=== PATIENT | female | born 1960 | race Caucasian/White ===

== ENCOUNTER 2017-05-15 14:43 | Inpatient (IN) ==
--- NOTE | 2017-05-15 15:50 | EKG Report ---
Stationary ECG Study [facility] ER Test Date: 05/15/2017 2:56:45 PM Pat Name: FENG ALFORD Department: Room: Gender: F Recovery Agent: : 1960 Requested by: Amaury Inman Order Number: [id number] Reading MD: IGNACIO MUNIZ Intervals [place] Rate: 93 P: 999 MD: 0 QRS: 49 QRSD: 86 T: 79 QT: 384 QTc: 435 Interpretive Statements ATRIAL FIBRILLATION NONSPECIFIC T-WAVE ABNORMALITY Electronically Signed On 05-15-17 18:22:45 CDT by IGNACIO MUNIZ [email or web address]
--- NOTE | 2017-05-15 16:03 | Emergency Department Note ---
Arrival - Arrival Chief Complaint: Shortness of Breath Stated Complaint: SOB,high heart rate,afib ED Nursing Triage Note: sob on exertion for the past 7 days. has a hx of heart cath 3 weeks ago. reports that she has a pain that comes and goes in left flank area that radiates around to her side. reports has also had some jaw pain and left arm pain. Mode of Arrival: Ambulatory Limitations: No Limitations Source: Patient Time Seen by Provider: 05/15/17 15:58 - History of Present Illness HPI Narrative: This 56-year-old white female presents with one-week of orthopnea, PND, dyspnea on exertion, and elevated heart rate when moving about. In relationship to this she has likewise had some jaw pain, left arm pain, and left sided back pain all of which follows 3 weeks after a heart cath. Her heart cath was performed by Dr. Suarez for Dr. Lockett and she states no stents were placed and all she was told that she had 40% blockage without mention if she had congestive heart failure not. She denies chills, fever, cough, nausea, vomiting , or diaphoresis with these episodes. At rest in bed she currently appears in no acute distress. Onset (ago): week(s) (Patient presents 1 week post onset of symptoms) Date of Last Menstrual Period: hyst Allergies/Adverse Reactions: Allergies Allergy/AdvReac Type Severity Reaction Status Date / Time Iodinated Contrast Media - Allergy SHORTNESS Verified 04/22/17 07:33 Oral and OF BREATH [Iodinated Contrast Media - IV Dye] morphine Allergy HIVES Verified 04/22/17 07:33 iodine AdvReac SHORTNESS Verified 04/22/17 07:33 OF BREATH metoclopramide [From Reglan] AdvReac Cramping Verified 04/22/17 07:33 of the Muscles promethazine [From Phenergan] AdvReac ITCHING Verified 04/22/17 07:33 Home Medications: Home Medications Medication Instructions Recorded Confirmed Type HYDROcodone/ACETAMIN 10-325 [[place] 1 tablet PO Q6H PRN 03/11/16 05/15/17 History 10-325] Rosuvastatin [Crestor] 20 mg PO BEDTIME 03/11/16 05/15/17 History Pantoprazole Tab [Protonix Tab] 40 mg PO BID 04/26/16 05/15/17 History Gabapentin 300 mg PO BEDTIME 06/23/16 05/15/17 History amLODIPine [Norvasc] 5 mg PO QAM 06/23/16 05/15/17 History Aspirin EC Tab 81 mg PO QAM 04/21/17 05/15/17 History Dronedarone [Multaq] 400 mg PO BID W/MEALS 04/21/17 05/15/17 History Furosemide Tab [Lasix Tab] 20 mg PO QAM 04/21/17 05/15/17 History Metoprolol Succinate Xl [Toprol Xl] 50 mg PO QAM 04/21/17 05/15/17 History Ondansetron Odt Tab [Zofran Odt] 4 mg PO BID PRN 04/21/17 05/15/17 History Warfarin [Coumadin] 2 mg PO QAM 04/21/17 05/15/17 History Warfarin [Coumadin] 5 mg PO QAM 04/21/17 05/15/17 History Sertraline [Zoloft] 100 mg PO BEDTIME 05/15/17 05/15/17 History Review of System - Review of System 12 point system: reviewed and no additional remarkable complaints except as stated - Review of System Constitutional: Present: as per HPI Respiratory: Present: as per HPI Cardiovascular: Present: as per HPI Gastrointestinal: Present: as per HPI Medical,Surgical,& Family Hx - Medical History Cardio: History of: Cardiac Dysrhythmia (A-Fib), Hypertension Psychological: History of: Depression Neurology: No history of: Seizures Endocrine: History of: Dyslipidemia Respiratory: History of: Obstructive Sleep Apnea Gastrointestinal: History of: GERD Musculoskeletal: History of: Back/Neck Problems, Degenerative Disk Disease, Herniated Disk - Surgical History Cardiac Surgeries: Sugical HX of: Cardiac Catheterization HEENT Surgeries: Surgical HX of: Tonsilectomy & Adenoidectomy Abdominal Surgeries: Surgical HX of: Cholecystectomy Reproductive Surgeries: Surgical HX of;: Section, Hysterectomy Orthopedic Surgeries: Surgical HX of;: Orthopedic Surgery (shoulder surg) - Family History Family History: Reports;: Family Cancer, Family Diabetes, Family Heart Disease, Family Hypertension - Social History Smoking Status: Former smoker Exam Physical Examination: GENERAL: Obese white female in no acute distress. HEENT: Normocephalic. No trauma. Moist mucous membranes. EOMI. PERRLA. ENT NML NECK: Supple. No adenopathy. CARDIAC: Regular. No murmurs. Heart rate 100 CHEST: Clear to auscultation. No respiratory distress. O2 sat 96% ABDOMEN: Soft. Nontender. Active bowel sounds. EXTREMITIES: No trauma. Normal ROM. No pedal edema. SKIN: No diaphoresis. No rash. NEURO: Alert. Neuro intact no focal deficits. Vital Signs: Vital Signs Temperature 97.1 F L 05/15/17 14:52 Pulse Rate 92 H 05/15/17 18:15 Respiratory Rate 17 05/15/17 18:15 Blood Pressure 121/86 05/15/17 18:15 O2 Sat by Pulse Oximetry 99 05/15/17 18:15 Course - Reevaluation(s) Reevaluation #1: Discussed with patient and family the need for hospitalization for cardioversion in the morning. - Consultations Consultation #1: Discussed with Dr. Lockett who advised admission for cardioversion in the morning and treatment of failure in house. Results - Labs CBC & BMP: 05/15/17 17:20 05/15/17 17:20 Labs: I reviewed the laboratory noted the depressed hematocrit and elevated BNP - Impressions EKG: Atrial fibrillation at 93 with normal QRS duration and nonspecific ST changes. No acute injury pattern noted. - Diagnostic Findings Procedure: Chest x-ray: image reviewed by me, report reviewed by me (Stable mild cardiomegaly otherwise negative chest) Disposition Clinical Impression: Atrial fibrillation, Congestive heart failure Case discussed with: patient, patient's family Disposition: Still a Patient Condition: Guarded Time of Disposition: 19:00
--- NOTE | 2017-05-15 16:42 | XRay Report ---
2 view chest. Indication: Shortness of breath. Comparison: April 22, 2017. The heart is enlarged. A small electrode projects over the left aspect of the heart. The pulmonary vasculature is normal. The lung guzman are clear. Surgical clips in the right upper quadrant. Degenerative changes in the spinal column. Impression: Mild stable cardiomegaly. No acute abnormality. PROCEDURE INTERPRETED AT [facility] DEPARTMENT OF RADIOLOGY Final Report Signed by: Dr. Rhonda Arzate
[2017-05-15 17:42] LABS: Basophils # 0.1 10*3/uL (0.0-0.2); Basophils % 0.8 % (0.0-0.8); Eosinophils # 0.1 10*3/uL (0.0-0.87); Eosinophils % 2.3 % (0.00-10.9); Hematocrit 34.2 VOL% (35.7-47.0); Hemoglobin 11.2 GM/DL (12.0-16.0); Immature Granulocytes % 0.2 %; Immature Granulocytes Absolute 0.01 #; Lymphocytes # 2.5 10*3/uL (1.4-4.0); Lymphocytes % 39.5 % (21.3-54.2); Mean Corpuscular HGB Conc 32.7 GM/DL (32-36); Mean Corpuscular Hemoglobin 27 PG (27-34); Mean Corpuscular Volume 81.6 FL (87-102); Mean Platelet Volume 9.4 FL (9.6-12.0); Monocytes # 0.6 10*3/uL (0.11-0.8); Monocytes % 8.9 % (1.7-12.7); Neutrophils % 48.3 % (38.7-73.9); Platelet Count 298 T/CUMM (130-400); Red Blood Count 4.19 MC/CUMM (3.8-5.5); Red Cell Distribution Width 14.3 % (9.3-17.3); White Blood Count 6.2 T/CUMM (4-12)
[2017-05-15 17:53] LABS: PT Patient Result 22.1 SECS; Partial Thromboplastin Time 36.3 SECS (0-40)
[2017-05-15 18:15] LABS: Alanine Aminotransferase 23 U/L (13-56); Albumin 3.6 G/DL (3.4-5.0); Alkaline Phosphatase 96 U/L (45-117); Aspartate Amino Transferase 29 U/L (0-37); Blood Urea Nitrogen 15 MG/DL (7-18); Calcium 9.1 MG/DL (8.5-10.1); Glucose 85 MG/DL (74-106); Osmolality,Calculated 276.5 MOS/KG (273-304); Potassium 3.8 MMOL/L (3.5-5.1); Sodium 139 MMOL/L (136-145); Total Protein 7.6 G/DL (6.4-8.3); Troponin I Only < 0.015 NG/ML (0.00-0.045)
[2017-05-15 18:37] LABS: Apearance,Urine CLEAR (Clear); Bacteria,Urine Occasional /HPF (Few); Bilirubin,Urine Negative (Negative); Blood, Urine Negative (Negative); Glucose,Urine (UA) Negative (Negative); Ketones,Urine Negative (Negative); Nitrite,Urine Negative (Negative); Protein,Urine Negative; RBC,Urine <1 /HPF (0-4); Squamous Epithelial Cell,Urine Occasional /HPF (0-10); Urine Color Yellow (Yellow); Urine Specific Gravity 1.009 (1.001-1.035); Urine Urobilinogen < 2.0 EU/DL (0.2-1.0); WBC,Urine 1 /HPF (0-6)
[2017-05-15 18:44] LABS: Barbiturates Screen,Urine Negative (Negative); Benzodiazepines Screen,Urine Negative (Negative); Cannabinoid Screen,Urine Negative (Negative); Opiate Screen,Urine Positive (Negative); Phencyclidine Screen,Urine Negative (Negative)
[2017-05-15] MEDS ORDERED: ASPIRIN 325 MG TABLET PO STA (19:02)
[2017-05-15] MEDS ORDERED: METOPROLOL SUCCINATE XL 50 MG TABLET PO ONE (19:02)
[2017-05-15] MEDS ORDERED: ASPIRIN 325 MG TABLET ONE (19:10)
[2017-05-15] MEDS ORDERED: ROSUVASTATIN 20 MG TABLET PO SCH (21:00)
[2017-05-15] MEDS ORDERED: GABAPENTIN 300 MG CAPSULE PO SCH (21:00)
[2017-05-15] MEDS ORDERED: ONDANSETRON ODT 4 MG TABLET PO PRN (21:22)
[2017-05-15] MEDS: PANTOPRAZOLE 40 MG TABLET PO SCH (22:33)
[2017-05-15] MEDS: SERTRALINE 100 MG TABLET PO SCH (22:33)
[2017-05-15] MEDS: ROSUVASTATIN 20 MG TABLET PO SCH (22:34)
[2017-05-15] MEDS: GABAPENTIN 300 MG CAPSULE PO SCH (22:35)
[2017-05-16] MEDS: ONDANSETRON 4 MG/2 ML VIAL IV PRN ×2 (02:41→23:23)
[2017-05-16 06:19] LABS: Partial Thromboplastin Time 35.3 SECS (0-40)
[2017-05-16 06:24] LABS: INR 1.9; PT Patient Result 20.4 SECS
[2017-05-16 06:36] LABS: Calcium 8.6 MG/DL (8.5-10.1); Osmolality,Calculated 280.3 MOS/KG (273-304); Potassium 3.7 MMOL/L (3.5-5.1)
--- NOTE | 2017-05-16 07:29 | EKG Report ---
Stationary ECG Study [facility] Test Date: 05/16/2017 7:28:31 AM Pat Name: FENG ALFORD Department: Room: 285 Gender: F Tanner [employer] Continuous Process: DOM : 1960 Requested by: Amaury Inman Order Number: [id number] Reading MD: RACHEL SANDHU Intervals [place] Rate: 82 P: 999 TX: 0 QRS: 48 QRSD: 94 T: 86 QT: 406 QTc: 444 Interpretive Statements ATRIAL FIBRILLATION NON-SPECIFIC ST-T CHANGES Electronically Signed On 05-16-17 19:00:09 CDT by RACHEL SANDHU [email or web address]
--- NOTE | 2017-05-16 07:57 | Cardiology History & Physical ---
Assessment and Plan (1) Atrial fibrillation Status: Chronic Assessment and plan: 56-year-old female, persistent atrial fibrillation, status post ablation, morbid obesity, JELENA, the CHF exacerbation, history of GI bleed. -Discussed risks and benefits of management options. She is currently symptomatic from A. fib and diastolic CHF. We will proceed with a MAURICIO/ cardioversion.NPO -Stop Multaq, will resume amiodarone in pm, will start with IV loading. Monitor QTc -Continue IV diuresis today -Continue anticoagulate with Coumadin. -We will continue to pursue intensive risk factor management. She just started using her CPAP again for severe JELENA. When CHF improves, she will resume exercise for weight loss for morbid obesity. -If the A. fib remains recurrent and symptomatic, despite lifestyle changes and medical management, we can consider redo ablation. I would not pursue this, unless we can get her to lose weight and strictly adhere to CPAP. -Keep on telemetry Current Visit: No (2) Obesity Status: Acute Current Visit: No (3) JELENA on CPAP Status: Chronic Current Visit: No (4) History of GI bleed Status: Acute Current Visit: No History of Present Illness Chief complaint: AF, CHF History of present illness: Ms. More is a 56 year old female patient of [facility]. She had A. fib ablation in 2016, and had good rhythm control for several months. The amiodarone was discontinued. Unfortunately, she later had issues using her CPAP and the JELENA was untreated and a few prolapse. She also tries to lose weight, for morbid obesity, but once the A. fib return, she was unable to lose more weight, actually started gaining again. Also history of anemia, GI bleed, was not active recently. Had some hematuria recently. She is anticoagulated with Coumadin. She refused NOACs in the past. She planned to undergo neck injection for chronic pain, which was deferred. Recently, she was also evaluated for CAD due to recurrent chest pain, nonobstructive CAD was diagnosed. She developed progressive abdominal discomfort, orthopnea, dyspnea and weight gain for the past 8 days. She was admitted from the ER yesterday, with CHF exacerbation. She is still in atrial fibrillation, heart rate well controlled. She feels unwell but in A. fib. She was currently on multiple, which did not provide good rhythm control. But rate control is acceptable Labs are unremarkable. Chest x-ray shows mild pulmonary congestion Home Medications Medication Instructions Recorded Confirmed Type HYDROcodone/ACETAMIN 10-325 [[facility] 1 tablet PO Q6H PRN 03/11/16 05/15/17 History 10-325] Rosuvastatin [Crestor] 20 mg PO BEDTIME 03/11/16 05/15/17 History Pantoprazole Tab [Protonix Tab] 40 mg PO BID 04/26/16 05/15/17 History Gabapentin 300 mg PO BEDTIME 06/23/16 05/15/17 History amLODIPine [Norvasc] 5 mg PO QAM 06/23/16 05/15/17 History Aspirin EC Tab 81 mg PO QAM 04/21/17 05/15/17 History Dronedarone [Multaq] 400 mg PO BID W/MEALS 04/21/17 05/15/17 History Furosemide Tab [Lasix Tab] 20 mg PO QAM 04/21/17 05/15/17 History Metoprolol Succinate Xl [Toprol Xl] 50 mg PO QAM 04/21/17 05/15/17 History Ondansetron Odt Tab [Zofran Odt] 4 mg PO BID PRN 04/21/17 05/15/17 History Warfarin [Coumadin] 2 mg PO QAM 04/21/17 05/15/17 History Warfarin [Coumadin] 5 mg PO QAM 04/21/17 05/15/17 History Sertraline [Zoloft] 100 mg PO BEDTIME 05/15/17 05/15/17 History Allergies Allergy/AdvReac Type Severity Reaction Status Date / Time Iodinated Contrast Media - Allergy SHORTNESS Verified 04/22/17 07:33 Oral and OF BREATH [Iodinated Contrast Media - IV Dye] morphine Allergy HIVES Verified 04/22/17 07:33 iodine AdvReac SHORTNESS Verified 04/22/17 07:33 OF BREATH metoclopramide [From Reglan] AdvReac Cramping Verified 04/22/17 07:33 of the Muscles promethazine [From Phenergan] AdvReac ITCHING Verified 04/22/17 07:33 12 point system: reviewed and no additional remarkable complaints except as stated Medical,Surgical,& Family Hx - Medical History Cardio: History of: Cardiac Dysrhythmia (A-Fib), Hypertension Psychological: History of: Depression Neurology: No history of: Seizures Endocrine: History of: Dyslipidemia Respiratory: History of: Obstructive Sleep Apnea Gastrointestinal: History of: GERD Musculoskeletal: History of: Back/Neck Problems, Degenerative Disk Disease, Herniated Disk - Surgical History Cardiac Surgeries: Sugical HX of: Cardiac Catheterization HEENT Surgeries: Surgical HX of: Tonsilectomy & Adenoidectomy Abdominal Surgeries: Surgical HX of: Cholecystectomy Reproductive Surgeries: Surgical HX of;: Section, Hysterectomy Orthopedic Surgeries: Surgical HX of;: Orthopedic Surgery (shoulder surg) - Family History Family History: Reports;: Family Cancer, Family Diabetes, Family Heart Disease, Family Hypertension - Social History Smoking Status: Former smoker Frequency of Alcohol Use: None Type of Drug Use: None Cardiology Physical Exam - Constitutional Vitals: Vital Signs Temp Pulse Resp BP Pulse Ox 97.8 F 106 H 20 126/81 98 05/16/17 04:00 05/16/17 04:00 05/16/17 06:20 05/16/17 04:00 05/16/17 04:00 Intake and Output 05/15/17 05/15/17 05/16/17 15:59 23:59 07:59 Other: Voiding Method Toilet # Voids 1 Weight 133.356 kg 134.292 kg General appearance: no acute distress, morbidly obese - Head Head exam: Present: normal inspection, normocephalic - Eye Eye exam: Absent: conjunctival injection, periorbital swelling Pupils: Absent: dilated - ENT ENT exam: Present: normal external ear exam - Neck Neck exam: Present: normal inspection - Respiratory Respiratory exam: Present: clear to auscultation bilaterally, rhonchi (Minimal rhonchi) - Cardiovascular Cardiovascular exam: Present: irregular rhythm, systolic murmur. Absent: JVD - GI/Abdominal GI/Abdominal exam: Present: normal bowel sounds. Absent: distended - Extremities Exam Extremities exam: Present: normal inspection, normal capillary refill, edema (1+ ) - Back Exam Back exam: Present: normal inspection - Neurological Exam Neurological exam: Present: alert, oriented X3 - Psychiatric Psychiatric exam: Present: normal affect, normal mood - Skin Skin exam: Present: normal color, warm. Absent: cyanosis Result/EKG - Labs CBC & BMP: 05/15/17 17:20 05/16/17 05:45 Lab Results: I have reviewed the past 24 hour labs Labs: Laboratory Results - last 24 hr 05/15/17 05/15/17 05/15/17 17:20 17:20 17:20 WBC 6.2 RBC 4.19 Hgb 11.2 L Hct 34.2 L MCV 81.6 L MCH 27 MCHC 32.7 RDW 14.3 Plt Count 298 MPV 9.4 L Neut % (Auto) 48.3 Lymph % (Auto) 39.5 [place] % (Auto) 8.9 Eos % (Auto) 2.3 Baso % (Auto) 0.8 Neut # (Auto) 3.0 Lymph # (Auto) 2.5 [place] # (Auto) 0.6 Eos # (Auto) 0.1 Baso # (Auto) 0.1 Immature Gran % 0.2 Nucleated RBC % 0.0 Immature Gran # 0.01 Nucleated RBCs # 0.00 Immature Plt Fraction 0.0 INR 2.0 PT Patient/Control Mix 22.1 D D-Dimer, Quantitative Circ Anticoag PTT 36.3 D Sodium 139 Potassium 3.8 Chloride 107 Carbon Dioxide 26 Anion Gap 9.8 BUN 15 Creatinine 0.90 GFR Calculation 96 BUN/Creatinine Ratio 16.00 Glucose 85 Calculated Osmolality 276.5 Calcium 9.1 Total Bilirubin 0.40 AST 29 ALT 23 Alkaline Phosphatase 96 Total Creatine Kinase 179 CK-MB (CK-2) 1.5 Troponin I < 0.015 B-Natriuretic Peptide Total Protein 7.6 Albumin 3.6 Globulin 4.0 H Albumin/Globulin Ratio 0.9 L Urine Color Urine Appearance Urine pH Ur Specific [place] Urine Protein Urine Glucose (UA) Urine Ketones Urine Blood Urine Nitrate Urine Bilirubin Urine Urobilinogen Urine Leukocytes Urine RBC Urine WBC Ur Squamous Epith Cells Urine Bacteria Ur Culture Indicated? Urine Opiates Screen Ur Barbiturates Screen Ur Phencyclidine Scrn U Amphetamine/Methamph U Benzodiazepines Scrn U Cocaine Metab Screen U Cannabinoids Screen 05/15/17 05/15/17 05/15/17 17:20 17:20 18:25 WBC RBC Hgb Hct MCV MCH MCHC RDW Plt Count MPV Neut % (Auto) Lymph % (Auto) [place] % (Auto) Eos % (Auto) Baso % (Auto) Neut # (Auto) Lymph # (Auto) [place] # (Auto) Eos # (Auto) Baso # (Auto) Immature Gran % Nucleated RBC % Immature Gran # Nucleated RBCs # Immature Plt Fraction INR PT Patient/Control Mix D-Dimer, Quantitative <= 0.5 Circ Anticoag PTT Sodium Potassium Chloride Carbon Dioxide Anion Gap BUN Creatinine GFR Calculation BUN/Creatinine Ratio Glucose Calculated Osmolality Calcium Total Bilirubin AST ALT Alkaline Phosphatase Total Creatine Kinase CK-MB (CK-2) Troponin I B-Natriuretic Peptide 219 H Total Protein Albumin Globulin Albumin/Globulin Ratio Urine Color Urine Appearance Urine pH Ur Specific [place] Urine Protein Urine Glucose (UA) Urine Ketones Urine Blood Urine Nitrate Urine Bilirubin Urine Urobilinogen Urine Leukocytes Urine RBC Urine WBC Ur Squamous Epith Cells Urine Bacteria Ur Culture Indicated? Urine Opiates Screen Positive H Ur Barbiturates Screen Negative Ur Phencyclidine Scrn Negative U Amphetamine/Methamph Negative U Benzodiazepines Scrn Negative U Cocaine Metab Screen Negative U Cannabinoids Screen Negative 05/15/17 05/16/17 05/16/17 18:25 05:45 05:45 WBC RBC Hgb Hct MCV MCH MCHC RDW Plt Count MPV Neut % (Auto) Lymph % (Auto) [place] % (Auto) Eos % (Auto) Baso % (Auto) Neut # (Auto) Lymph # (Auto) [place] # (Auto) Eos # (Auto) Baso # (Auto) Immature Gran % Nucleated RBC % Immature Gran # Nucleated RBCs # Immature Plt Fraction INR 1.9 PT Patient/Control Mix 20.4 D-Dimer, Quantitative Circ Anticoag PTT 35.3 Sodium 141 Potassium 3.7 Chloride 108 H Carbon Dioxide 26 Anion Gap 10.7 BUN 14 Creatinine 0.70 GFR Calculation 130 BUN/Creatinine Ratio 20.00 Glucose 86 Calculated Osmolality 280.3 Calcium 8.6 Total Bilirubin AST ALT Alkaline Phosphatase Total Creatine Kinase CK-MB (CK-2) Troponin I B-Natriuretic Peptide Total Protein Albumin Globulin Albumin/Globulin Ratio Urine Color Yellow Urine Appearance Clear Urine pH 5.0 Ur Specific [place] 1.009 Urine Protein Negative Urine Glucose (UA) Negative Urine Ketones Negative Urine Blood Negative Urine Nitrate Negative Urine Bilirubin Negative Urine Urobilinogen < 2.0 H Urine Leukocytes Negative Urine RBC <1 Urine WBC 1 Ur Squamous Epith Cells Occasional Urine Bacteria Occasional Ur Culture Indicated? Not indicated Urine Opiates Screen Ur Barbiturates Screen Ur Phencyclidine Scrn U Amphetamine/Methamph U Benzodiazepines Scrn U Cocaine Metab Screen U Cannabinoids Screen 05/16/17 05:45 WBC RBC Hgb Hct MCV MCH MCHC RDW Plt Count MPV Neut % (Auto) Lymph % (Auto) [place] % (Auto) Eos % (Auto) Baso % (Auto) Neut # (Auto) Lymph # (Auto) [place] # (Auto) Eos # (Auto) Baso # (Auto) Immature Gran % Nucleated RBC % Immature Gran # Nucleated RBCs # Immature Plt Fraction INR PT Patient/Control Mix D-Dimer, Quantitative Circ Anticoag PTT Sodium Potassium Chloride Carbon Dioxide Anion Gap BUN Creatinine GFR Calculation BUN/Creatinine Ratio Glucose Calculated Osmolality Calcium Total Bilirubin AST ALT Alkaline Phosphatase Total Creatine Kinase CK-MB (CK-2) Troponin I B-Natriuretic Peptide 299 H Total Protein Albumin Globulin Albumin/Globulin Ratio Urine Color Urine Appearance Urine pH Ur Specific [place] Urine Protein Urine Glucose (UA) Urine Ketones Urine Blood Urine Nitrate Urine Bilirubin Urine Urobilinogen Urine Leukocytes Urine RBC Urine WBC Ur Squamous Epith Cells Urine Bacteria Ur Culture Indicated? Urine Opiates Screen Ur Barbiturates Screen Ur Phencyclidine Scrn U Amphetamine/Methamph U Benzodiazepines Scrn U Cocaine Metab Screen U Cannabinoids Screen - EKG EKG results: interpreted by me
[2017-05-16] MEDS ORDERED: DRONEDARONE 400 MG TABLET PO SCH ×2 (08:00)
[2017-05-16] MEDS ORDERED: WARFARIN 1 MG TABLET PO SCH (09:00)
[2017-05-16] MEDS ORDERED: FUROSEMIDE 20 MG TABLET PO SCH (09:00)
[2017-05-16] MEDS ORDERED: WARFARIN 5 MG TABLET PO SCH ×2 (09:00→18:00)
[2017-05-16] MEDS ORDERED: LIDOCAINE 1% 5 ML VIAL ONE (10:05)
[2017-05-16] MEDS ORDERED: PROPOFOL 200 MG/20 ML VIAL IV ONE (10:05)
--- NOTE | 2017-05-16 10:57 | History and Physical Update ---
Sedation H&P Update - History and Physical H&P was reviewed, the patient examined and there: are no changes in the patients condition since last H&P was completed. - Dictation Physical: refer to H&P completed by admitting physician - Physical Exam Mental Status: alert and oriented Heart: other (irregular, tachycardic) Lung: clear to auscultation Abdomen: within normal limits Vitals: within normal limits - Sedation Plan for Sedation: MAC Patient Consent: Procedure disscussed with patient and patinet has consented., Risks and benefits were discussed with patient,including infection,, bleeding, injury to surrounding structures, seizure, temporary nerve, Patient understands and accepts potential risks/benefits and agrees to ASA Class: III Airway Assessment: Class III: Soft palate, base of uvula visible
--- NOTE | 2017-05-16 11:40 | Electrophysiology Report ---
Date of Procedure:: 05/16/17 Pre-op diagnosis: AF, CHF Post-op diagnosis: same Procedure: PROCEDURAL SUMMARY MAURICIO guided cardioversion. Successful procedure, no complications. Timeout was performed before the procedure. Sedation was provided by the anesthesia team. A MAURICIO was performed to rule out intracardiac thrombi. See report separately. Briefly, no intracardiac thrombi were found. Synchronized DC cardioversion was performed with a 200 J biphasic shock. Sinus rhythm at 60 bpm restored.. The patient woke up uneventfully from sedation. There were no complications. Plan: Check EKG. If QTC normal, will start IV amiodarone loading. Continue diuresis Continue telemetry Anesthesia: MAC (by the anesthesia team) Surgeon / Physician: Stanislav Haro Transfer Operator: other (Alonso) Estimated blood loss: none Specimens: none sent Condition: stable Disposition: floor
--- NOTE | 2017-05-16 11:49 | EKG Report ---
Stationary ECG Study [facility] Test Date: 05/16/2017 11:41:31 AM Pat Name: FENG ALFORD Department: Room: 285 Gender: F Sales Director: : 1960 Requested by: Stanislav Haro Order Number: [id number] Reading MD: RACHEL SANDHU Intervals [place] Rate: 52 P: 60 ID: [id number] QRS: 31 QRSD: 83 T: 67 QT: 482 QTc: 461 Interpretive Statements SINUS BRADYCARDIA LONG QT INTERVAL Electronically Signed On 05-19-17 18:44:39 CDT by RACHEL SANDHU [email or web address]
--- NOTE | 2017-05-16 12:23 | ECHO Report ---
Jackie More Exam Date: 05/16/2017 10:51 Referring Physician: Technologist: Mary Nieto Age: 56 Ht (in): Wt (lb): Gender: F Exam Location: [facility] Echo Pre-op Dx: cardioversion Post-op Dx: BP: / HR: Rhythm: Sinus Technical Quality: Specimens Taken Devices Implanted Medications Complications Estimated Blood Loss Proc. Components IMPRESSIONS The left ventricle is normal in size, with mild global hypokinesis, without hypertrophy. Mild biatrial enlargement. No intracardiac thrombi. Mild mitral insufficiency. Mild aortic valve sclerosis, without stenosis, with trace insufficiency. Moderate tricuspid regurgitation, with normal pulmonary pressure. Atherosclerosis of the aorta. MEASUREMENTS (Male / Female) Normal Values FINDINGS Left Ventricle The left ventricle is normal in size, with mild global hypokinesis, without hypertrophy. Right Ventricle The right ventricle is normal in size, with normal systolic function Right Atrium The right atrium is mildly dilated Left Atrium The left atrium is mildly dilated. LA Appendage The left atrial appendage is normal. No thrombi. Peak flow in atrial fibrillation 60 cm/s per sec. IA Septum The interatrial septum is normal. No evidence of PFO. Mitral Valve Structurally normal mitral valve, with mild insufficiency. Aortic Valve Mild aortic valve sclerosis, without stenosis, with trace insufficiency. Tricuspid Valve Structurally normal tricuspid valve, with moderate regurgitation, without stenosis. Estimated pulmonary artery systolic pressure 31 mmHg plus right atrial pressure. Pulmonic Valve The pulmonic valve is structurally normal, without stenosis or insufficiency Pericardium Normal pericardium without effusion Aorta The descending aorta is of normal size. An atherosclerotic plaque is seen in the arch. Stanislav Haro (Electronically Signed) Final Date: 16 May 2017 12:22
[2017-05-16] MEDS: AMIODARONE INJ 450 MG in DEXTROSE 5% 241 ML IV SCH (12:55)
[2017-05-16] MEDS: ASPIRIN EC 81 MG TABLET PO SCH (14:24)
[2017-05-16] MEDS: METOPROLOL SUCCINATE XL 50 MG TABLET PO SCH (14:26)
[2017-05-16] MEDS: amLODIPine 5 MG TABLET PO SCH (14:26)
[2017-05-16] MEDS: PANTOPRAZOLE 40 MG TABLET PO SCH ×2 (14:26→22:20)
[2017-05-16] MEDS: ENOXAPARIN 120 MG/0.8 ML SYRINGE SUBCUT SCH (14:27)
--- NOTE | 2017-05-16 14:36 | Anesthesia Post-Op ---
Anesthesia Post OP - Post Ansesthetic Evaluation Patient seen in post op: Yes Resp: within normal limits CV: within normal limits Mental: within normal limits Temp: within normal limits Onkx-Tp-Exipbymyx: within normal limits Nausea and Vomiting: within normal limits Pain: within normal limits
[2017-05-16] MEDS ORDERED: MIDAZOLAM 2 MG/2 ML VIAL ONE (15:14)
[2017-05-16] MEDS: FUROSEMIDE 40 MG/4 ML VIAL IV SCH ×2 (17:02→18:35)
[2017-05-16] MEDS: GABAPENTIN 300 MG CAPSULE PO SCH (22:20)
[2017-05-16] MEDS: ROSUVASTATIN 20 MG TABLET PO SCH (22:21)
[2017-05-16] MEDS: SERTRALINE 100 MG TABLET PO SCH (22:21)
[2017-05-16] MEDS: TEMAZEPAM 15 MG CAPSULE PO PRN (23:23)
[2017-05-17] MEDS: ENOXAPARIN 120 MG/0.8 ML SYRINGE SUBCUT SCH ×3 (01:11→23:56)
[2017-05-17] MEDS: AMIODARONE INJ 450 MG in DEXTROSE 5% 241 ML IV SCH (04:28)
[2017-05-17 05:47] LABS: Basophils # 0.1 10*3/uL (0.0-0.2); Basophils % 0.9 % (0.0-0.8); Eosinophils # 0.2 10*3/uL (0.0-0.87); Eosinophils % 2.7 % (0.00-10.9); Hematocrit 32.1 VOL% (35.7-47.0); Hemoglobin 10.5 GM/DL (12.0-16.0); Immature Granulocytes % 0.4 %; Immature Granulocytes Absolute 0.02 #; Lymphocytes # 2.3 10*3/uL (1.4-4.0); Lymphocytes % 41.4 % (21.3-54.2); Mean Corpuscular HGB Conc 32.7 GM/DL (32-36); Mean Corpuscular Hemoglobin 27 PG (27-34); Mean Corpuscular Volume 82.1 FL (87-102); Mean Platelet Volume 9.4 FL (9.6-12.0); Monocytes # 0.6 10*3/uL (0.11-0.8); Monocytes % 11.1 % (1.7-12.7); Neutrophils # 2.4 10*3/uL (1.4-7.4); Neutrophils % 43.5 % (38.7-73.9); Platelet Count 250 T/CUMM (130-400); Red Blood Count 3.91 MC/CUMM (3.8-5.5); Red Cell Distribution Width 14.5 % (9.3-17.3); White Blood Count 5.5 T/CUMM (4-12)
[2017-05-17 05:59] LABS: INR 1.8; PT Patient Result 19.3 SECS
[2017-05-17 06:44] LABS: Calcium 8.6 MG/DL (8.5-10.1); Magnesium 2.1 MG/DL (1.8-2.4); Osmolality,Calculated 279.4 MOS/KG (273-304); Potassium 3.5 MMOL/L (3.5-5.1)
[2017-05-17] MEDS: FUROSEMIDE 40 MG/4 ML VIAL IV SCH ×2 (08:12→16:53)
--- NOTE | 2017-05-17 09:21 | Electrophysiology Progress Not ---
Assessment and Plan (1) Atrial fibrillation Status: Chronic Assessment and plan: 56-year-old female, persistent atrial fibrillation, status post ablation, morbid obesity, JELENA, the CHF exacerbation, history of GI bleed. 05/16: MAURICIO/DCCV -Good symptomatic improvement after cardioversion, diuresis -Switch amiodarone to p.o. 200 mg bid, discontinued repeat -Continue IV Lasix, monitor lateral -Continue CPAP at night. She will need sleep follow-up -Continue LMWH, INR still below 2, increased Coumadin. -Keep on telemetry -If stable, plan to discharge home tomorrow Current Visit: No (2) Obesity Status: Acute Current Visit: No (3) JELENA on CPAP Status: Chronic Current Visit: No (4) History of GI bleed Status: Acute Current Visit: No Electrophysiology Subjective Interval history: She is feeling better. Successful MAURICIO/cardioversion yesterday. Still feeling short of breath, with light to moderate activity. No orthopnea Exam - Constitutional Vitals: Period Temp Pulse Resp BP Sys/Flores Pulse Ox Last 24 Hr 97.1 F-98.4 F 52-55 16-20 113-172/63-76 94-97 General appearance: no acute distress, morbidly obese - Head Head exam: Present: normal inspection. Absent: contusion - Eye Eye exam: Absent: periorbital swelling, laceration to eyelids Pupils: Absent: dilated, fixed - ENT ENT exam: Present: normal external ear exam - Neck Neck exam: Present: normal inspection - Respiratory Respiratory exam: Present: clear to auscultation bilaterally. Absent: chest wall tenderness - Cardiovascular Cardiovascular exam: Present: regular rate and rhythm, systolic murmur. Absent : JVD - GI/Abdominal GI/Abdominal exam: Present: normal bowel sounds. Absent: distended - Extremities Exam Extremities exam: Present: normal inspection, normal capillary refill, edema (1+ ) - Back Exam Back exam: Present: normal inspection - Neurological Exam Neurological exam: Present: alert, oriented X3 - Psychiatric Psychiatric exam: Present: normal affect, normal mood - Skin Skin exam: Present: normal color, warm. Absent: cyanosis Results - Labs CBC & BMP: 05/17/17 05:34 05/17/17 05:34 Lab Results: I have reviewed the past 24 hour labs
[2017-05-17] MEDS: ONDANSETRON 4 MG/2 ML VIAL IV PRN ×2 (09:55→19:03)
[2017-05-17] MEDS: ASPIRIN EC 81 MG TABLET PO SCH (10:19)
[2017-05-17] MEDS: AMIODARONE 200 MG TABLET PO SCH ×2 (10:20→21:48)
[2017-05-17] MEDS: METOPROLOL SUCCINATE XL 50 MG TABLET PO SCH (10:20)
[2017-05-17] MEDS: PANTOPRAZOLE 40 MG TABLET PO SCH ×2 (10:20→21:49)
[2017-05-17] MEDS: amLODIPine 5 MG TABLET PO SCH (10:21)
[2017-05-17] MEDS: WARFARIN 4 MG TABLET PO SCH (10:23)
[2017-05-17] MEDS ORDERED: ALUM/MAG/SIMETH/LIDO VISC 1:1 30 ML BOTTLE PO ONE (10:58)
[2017-05-17] MEDS ORDERED: PANTOPRAZOLE 40 MG VIAL IV ONE (18:32)
[2017-05-17] MEDS: ROSUVASTATIN 20 MG TABLET PO SCH (21:48)
[2017-05-17] MEDS: SERTRALINE 100 MG TABLET PO SCH (21:49)
[2017-05-17] MEDS: TEMAZEPAM 15 MG CAPSULE PO PRN (21:50)
[2017-05-17] MEDS: GABAPENTIN 300 MG CAPSULE PO SCH (21:53)
--- NOTE | 2017-05-18 08:01 | EKG Report ---
Stationary ECG Study [facility] Test Date: 05/18/2017 8:02:16 AM Pat Name: FENG ALFORD Department: Room: 285 Gender: F Open Developer Operator: DOM : [id number] Requested by: Stanislav Haro Order Number: [id number] Reading MD: JIMENEZ LANDAVERDE Intervals [place] Rate: 53 P: 999 TX: 0 QRS: 32 QRSD: 94 T: 70 QT: 517 QTc: 499 Interpretive Statements SINUS BRADYCARDIA AT 53 BPM LOW QRS VOLTAGE IN PRECORDIAL LEADS NONSPECIFIC T-WAVE ABNORMALITY PROLONGED QTc INTERVAL Electronically Signed On 05-21-17 12:17:58 CDT by JIMENEZ LANDAVERDE [email or web address]
[2017-05-18 08:22] LABS: PT Patient Result 21.4 SECS
[2017-05-18] MEDS: FUROSEMIDE 40 MG/4 ML VIAL IV SCH (08:38)
[2017-05-18] MEDS: ASPIRIN EC 81 MG TABLET PO SCH (08:48)
[2017-05-18] MEDS: amLODIPine 5 MG TABLET PO SCH (08:49)
[2017-05-18] MEDS: PANTOPRAZOLE 40 MG TABLET PO SCH (08:49)
[2017-05-18] MEDS: WARFARIN 4 MG TABLET PO SCH (08:49)
[2017-05-18] MEDS: AMIODARONE 200 MG TABLET PO SCH (08:49)
[2017-05-18] MEDS: METOPROLOL SUCCINATE XL 50 MG TABLET PO SCH (08:50)
[2017-05-18] MEDS: ONDANSETRON 4 MG/2 ML VIAL IV PRN (08:55)
[2017-05-18 08:58] LABS: Magnesium 2.2 MG/DL (1.8-2.4); Osmolality,Calculated 275.7 MOS/KG (273-304); Potassium 3.6 MMOL/L (3.5-5.1)
--- NOTE | 2017-05-18 09:56 | Discharge Summary ---
Hospital Course - Hospital Course Hospital Course: Ms. More is a 57-year-old female, followed by me for EP. She has long-standing , highly symptomatic paroxysmal and persistent atrial fibrillation, for which she underwent ablation in 2016. She did very well for a few months, function, she stopped using her CPAP due to intolerance. She also had issues later with anticoagulation, anemia, GI bleed, which resolved. She was seen by Dr. Lopez previously for this. She was admitted for symptomatic atrial fibrillation, and diastolic CHF exacerbation. She was diuresed and MAURICIO guided cardioversion was performed for the A. fib. The multiduct was discontinued and IV amiodarone was started, which was then transitioned to p.o. The QTC remained stable at 490 ms. No pro arrhythmia was noted. -She was bridged with Lovenox, while the INR was subtherapeutic. INR 2.0 on the day of discharge. Continue Coumadin 7 mg daily. -Multaq was discontinued. Amiodarone was started. Continue 200 mg daily. -Lasix was increased to 40 mg daily. Continue potassium 20 mics a day. -We started using nocturnal CPAP, which she tolerated well. She will need to follow-up with sleep specialty. -She had mild GI discomfort during hospital stay, without evidence of any GI bleed. She will need follow-up with GI -Follow-up with EP in 1 week. Check PT, CBC, BMP/magnesium then. . Diagnosis - Discharge Diagnosis (1) Atrial fibrillation Status: Chronic (2) Obesity Status: Acute (3) JELENA on CPAP Status: Chronic (4) History of GI bleed Status: Acute Discharge Plan - Discharge Data Disposition: Disch To Home/Self Care Condition at Discharge: Stable Discharge Diet: advance to your usual diet Activity: resume usual activities as tolerated Hygiene: no restrictions Weight Bearing at Discharge: full weight bearing Driving: no restrictions Contact your physician if you experience:: fever over 101, Difficulty voiding, Redness or swelling, Nausea/Vomiting, Shortness of breath, Bleeding, pain uncontrolled by pain medications - Discharge Medications New Potassium Chloride Cap/Tab [K Dur] 20 meq PO DAILY #30 tablet Amiodarone Tab [Cordarone Tab] 200 mg PO DAILY #90 tablet Furosemide Tab [Lasix Tab] 40 mg PO DAILY #30 tablet Continue HYDROcodone/ACETAMIN 10-325 [[place] 10-325] 1 tablet PO Q6H PRN PRN Reason: Pain Rosuvastatin [Crestor] 20 mg PO BEDTIME Pantoprazole Tab [Protonix Tab] 40 mg PO BID Gabapentin 300 mg PO BEDTIME amLODIPine [Norvasc] 5 mg PO QAM Warfarin [Coumadin] 2 mg PO QAM Metoprolol Succinate Xl [Toprol Xl] 50 mg PO QAM Warfarin [Coumadin] 5 mg PO QAM Ondansetron Odt Tab [Zofran Odt] 4 mg PO BID PRN PRN Reason: Nausea Aspirin EC Tab 81 mg PO QAM Sertraline [Zoloft] 100 mg PO BEDTIME Discontinued Furosemide Tab [Lasix Tab] 20 mg PO QAM Dronedarone [Multaq] 400 mg PO BID W/MEALS - Follow Up or Referral Follow Up: Stanislav Haro MD [Physician] - 1 Week (Check PT at the Coumadin clinic, check CBC , BMP/magnesium) - Forms/Instructions Exam - Constitutional Vitals: Period Temp Pulse Resp BP Sys/Flores Pulse Ox Last 24 Hr 97.2 F-98.0 F 49-59 16-20 102-145/52-89 93-98 General appearance: no acute distress, morbidly obese - Head Head exam: Present: normal inspection. Absent: abrasion, hematoma - Eye Eye exam: Absent: periorbital swelling, laceration to eyelids Pupils: Present: dilated - ENT ENT exam: Present: normal external ear exam - Neck Neck exam: Present: normal inspection - Respiratory Respiratory exam: Present: clear to auscultation bilaterally. Absent: chest wall tenderness - Cardiovascular Cardiovascular exam: Present: regular rate and rhythm, systolic murmur. Absent : JVD - GI/Abdominal GI/Abdominal exam: Present: normal bowel sounds. Absent: distended - Extremities Exam Extremities exam: Present: normal inspection, normal capillary refill. Absent: edema - Back Exam Back exam: Present: normal inspection - Neurological Exam Neurological exam: Present: alert, oriented X3 - Psychiatric Psychiatric exam: Present: normal affect, normal mood - Skin Skin exam: Present: normal color, warm. Absent: cyanosis Discharge Results Procedures and tests throughout hospitalization: Pending Orders 05/15/17 17:20 Blood Culture Stat 05/16/17 09:40 CL heart Routine Labs on day of discharge: Labs from last 24 hours 05/18/17 05/18/17 07:57 07:57 INR 2.0 PT Patient/Control Mix 21.4 Sodium 138 Potassium 3.6 Chloride 102 Carbon Dioxide 32 Anion Gap 7.6 BUN 16 Creatinine 0.90 GFR Calculation 96 BUN/Creatinine Ratio 17.00 Glucose 91 Calculated Osmolality 275.7 Calcium 9.0 Magnesium 2.2 Preliminary micro results at discharge 05/15/17 17:20 Blood Culture - Preliminary Blood No growth at 1 day 05/15/17 17:20 Blood Culture - Preliminary Blood No growth at 1 day - Imaging and Cardiology Cardiology Procedure: image reviewed by me, report reviewed by me DS: Provider Date of admission: 05/15/17 19:01 Primary care physician: Frantz Cisneros MD Attending physician on admission: Stanislav Haro MD Discharging clinician: Stanislav Haro MD Expected date of discharge: 05/18/17
[2017-05-18] MEDS ORDERED: POTASSIUM CHLORIDE 20 MEQ TABLET PO SCH (10:00)
[2017-05-18 11:08] VITALS: BP 134/69
[2017-05-18] MEDS ORDERED: WARFARIN 4 MG TABLET PO SCH (18:00)
[2017-05-18] MEDS ORDERED: WARFARIN 3 MG TABLET PO SCH (18:00)
[2017-05-19] MEDS ORDERED: AMIODARONE 200 MG TABLET PO SCH (09:00)
[2017-05-19] MEDS ORDERED: FUROSEMIDE 40 MG TABLET PO SCH (09:00)
== END 2017-05-18 13:34 | disposition home or self-care (01) | DRG 308 ==
LOC: N.ED 14:43 → N.EDINP 19:01 → N.TELEN 19:48
PROVIDERS: ADMIT Internal Medicine Clinical Cardiac Electrophysiology; ATTEND Internal Medicine Clinical Cardiac Electrophysiology

== ENCOUNTER 2017-12-14 10:52 | Inpatient (IN) ==
[2017-12-14] MEDS ORDERED: ONDANSETRON 4 MG/2 ML VIAL IV STA (11:45)
[2017-12-14 12:17] LABS: Basophils % 0.2 % (0.0-0.8); Eosinophils % 0.2 % (0.00-10.9); Hematocrit 31.9 VOL% (35.7-47.0); Hemoglobin 10.5 GM/DL (12.0-16.0); Immature Granulocytes % 0.3 %; Immature Granulocytes Absolute 0.04 #; Lymphocytes # 2.3 10*3/uL (1.4-4.0); Lymphocytes % 19.5 % (21.3-54.2); Mean Corpuscular HGB Conc 32.9 GM/DL (32-36); Mean Corpuscular Hemoglobin 27 PG (27-34); Mean Corpuscular Volume 82.4 FL (87-102); Monocytes # 1.2 10*3/uL (0.11-0.8); Monocytes % 10.6 % (1.7-12.7); Neutrophils # 8.1 10*3/uL (1.4-7.4); Neutrophils % 69.2 % (38.7-73.9); Platelet Count 305 T/CUMM (130-400); Red Blood Count 3.87 MC/CUMM (3.8-5.5); Red Cell Distribution Width 16.3 % (9.3-17.3); White Blood Count 11.7 T/CUMM (4-12)
[2017-12-14 12:27] LABS: INR 3.3
[2017-12-14] MEDS ORDERED: ONDANSETRON 4 MG/2 ML VIAL ONE ×2 (12:28→20:51)
[2017-12-14 12:29] LABS: PT Patient Result 33.5 SECS
[2017-12-14 12:39] LABS: Albumin 3.6 G/DL (3.4-5.0); Bilirubin,Total 0.5 MG/DL (0.2-1.0); Calcium 8.5 MG/DL (8.5-10.1); Potassium 3.6 MMOL/L (3.5-5.1); Total Protein 6.9 G/DL (6.4-8.3)
[2017-12-14 12:42] LABS: Troponin I Only 1.13 NG/ML (0.00-0.045)
[2017-12-14 13:24] LABS: Apearance,Urine CLEAR (Clear); Bacteria,Urine Occasional /HPF (Few); Bilirubin,Urine Negative (Negative); Blood, Urine Negative (Negative); Glucose,Urine (UA) Negative (Negative); Ketones,Urine Negative (Negative); Mucus,Urine Occasional /LPF (Occasional); Nitrite,Urine Negative (Negative); Protein,Urine Negative; RBC,Urine <1 /HPF (0-4); Urine Color Colorless (Yellow); Urine Specific Gravity 1.004 (1.001-1.035); Urine Urobilinogen < 2.0 EU/DL (0.2-1.0); WBC,Urine 6 /HPF (0-6)
[2017-12-14] MEDS ORDERED: LEVOFLOXACIN INJ 750 MG in PREMIX 1 EACH IV STA (15:27)
[2017-12-14] MEDS ORDERED: LEVOFLOXACIN INJ 150 ML IV ONE (15:55)
[2017-12-14] MEDS ORDERED: HYDROmorphone 2 MG/1 ML VIAL IV STA (17:47)
[2017-12-14] MEDS ORDERED: HYDROmorphone 2 MG/1 ML VIAL ONE (18:10)
[2017-12-14] MEDS ORDERED: MORPHINE 4 MG/1 ML VIAL IV PRN (18:50)
[2017-12-14] MEDS ORDERED: ACETAMINOPHEN 325 MG TABLET PO PRN (18:50)
[2017-12-14] MEDS ORDERED: guaiFENesin/CODEINE 5 ML LIQUID PO PRN (18:57)
[2017-12-14] MEDS ORDERED: ALBUTEROL 2.5 MG/3 ML NEB RESP TX PRN (18:57)
[2017-12-14] MEDS ORDERED: ONDANSETRON ODT 4 MG TABLET PO PRN (18:58)
[2017-12-14] MEDS: ALBUTEROL/IPRATROPIUM 3 ML NEB RESP TX SCH (19:23)
[2017-12-14] MEDS: ONDANSETRON 4 MG/2 ML VIAL IV PRN (20:54)
[2017-12-14] MEDS ORDERED: PROCHLORPERAZINE 5 MG TABLET PO PRN (22:41)
[2017-12-14] MEDS: METOPROLOL TARTRATE 25 MG TABLET PO SCH (23:12)
[2017-12-14] MEDS: GABAPENTIN 300 MG CAPSULE PO SCH (23:12)
[2017-12-14] MEDS: ROSUVASTATIN 20 MG TABLET PO SCH (23:12)
[2017-12-14] MEDS: cefTRIAXone 1,000 MG in SYRINGE 1 EACH IV SCH (23:12)
[2017-12-14] MEDS: PANTOPRAZOLE 40 MG TABLET PO SCH (23:12)
[2017-12-14] MEDS: fentaNYL 100 MCG/2 ML VIAL IV PRN (23:13)
[2017-12-14] MEDS ORDERED: PROCHLORPERAZINE 10 MG TABLET PO PRN (23:30)
[2017-12-15] MEDS: AZITHROMYCIN INJ 500 MG in SODIUM CHLORIDE 0.9% 250 ML IV SCH (00:20)
[2017-12-15] MEDS: ALBUTEROL/IPRATROPIUM 3 ML NEB RESP TX SCH ×4 (01:18→20:20)
[2017-12-15 01:41] LABS: Troponin I Only 0.519 NG/ML (0.00-0.045)
[2017-12-15 05:05] LABS: Basophils % 0.5 % (0.0-0.8); Eosinophils # 0.1 10*3/uL (0.0-0.87); Eosinophils % 0.6 % (0.00-10.9); Hematocrit 27.7 VOL% (35.7-47.0); Hemoglobin 8.9 GM/DL (12.0-16.0); Immature Granulocytes % 0.4 %; Immature Granulocytes Absolute 0.03 #; Lymphocytes # 2.7 10*3/uL (1.4-4.0); Lymphocytes % 31.4 % (21.3-54.2); Mean Corpuscular HGB Conc 32.1 GM/DL (32-36); Mean Corpuscular Hemoglobin 27 PG (27-34); Mean Corpuscular Volume 84.2 FL (87-102); Mean Platelet Volume 9.8 FL (9.6-12.0); Monocytes # 1.1 10*3/uL (0.11-0.8); Monocytes % 12.7 % (1.7-12.7); Neutrophils # 4.6 10*3/uL (1.4-7.4); Neutrophils % 54.4 % (38.7-73.9); Platelet Count 243 T/CUMM (130-400); Red Blood Count 3.29 MC/CUMM (3.8-5.5); White Blood Count 8.5 T/CUMM (4-12)
[2017-12-15 05:09] LABS: INR 2.6
[2017-12-15 05:10] LABS: PT Patient Result 26.3 SECS
[2017-12-15 05:42] LABS: Calcium 8.2 MG/DL (8.5-10.1); Osmolality,Calculated 277.5 MOS/KG (273-304); Potassium 3.3 MMOL/L (3.5-5.1); Risk Ratio 2.46; Thyroid Stimulating Hormone 1.34 uIU/ml (0.358-3.74); VLDL CHOLESTEROL 19.2 MG/DL
[2017-12-15 05:47] LABS: Troponin I Only 0.447 NG/ML (0.00-0.045)
[2017-12-15] MEDS: METOPROLOL TARTRATE 25 MG TABLET PO SCH ×2 (08:10→21:11)
[2017-12-15] MEDS: ASPIRIN EC 81 MG TABLET PO SCH (08:10)
[2017-12-15] MEDS: POTASSIUM CHLORIDE 20 MEQ TABLET PO SCH (08:10)
[2017-12-15] MEDS: FUROSEMIDE 40 MG TABLET PO SCH (08:11)
[2017-12-15] MEDS: ONDANSETRON 4 MG/2 ML VIAL IV PRN ×2 (08:11→17:02)
[2017-12-15] MEDS: PANTOPRAZOLE 40 MG TABLET PO SCH ×2 (08:11→21:11)
[2017-12-15] MEDS ORDERED: PANTOPRAZOLE 40 MG TABLET PO SCH (09:00)
[2017-12-15] MEDS: fentaNYL 100 MCG/2 ML VIAL IV PRN ×2 (10:28→15:06)
[2017-12-15] MEDS: MONTELUKAST 10 MG TABLET PO SCH (11:30)
[2017-12-15] MEDS: BENZONATATE 100 MG CAPSULE PO SCH ×2 (14:59→21:11)
[2017-12-15] MEDS: HYDROmorphone 2 MG/1 ML VIAL IV PRN ×2 (17:43→21:11)
[2017-12-15] MEDS ORDERED: WARFARIN 5 MG TABLET PO SCH (18:00)
[2017-12-15] MEDS: ROSUVASTATIN 20 MG TABLET PO SCH (21:11)
[2017-12-15] MEDS: GABAPENTIN 300 MG CAPSULE PO SCH (21:11)
[2017-12-15] MEDS: cefTRIAXone 1,000 MG in SYRINGE 1 EACH IV SCH (22:36)
[2017-12-16] MEDS: AZITHROMYCIN INJ 500 MG in SODIUM CHLORIDE 0.9% 250 ML IV SCH (00:23)
[2017-12-16] MEDS: ALBUTEROL/IPRATROPIUM 3 ML NEB RESP TX SCH ×4 (01:05→19:05)
[2017-12-16] MEDS: HYDROmorphone 2 MG/1 ML VIAL IV PRN ×6 (01:33→21:26)
[2017-12-16] MEDS: ONDANSETRON 4 MG/2 ML VIAL IV PRN ×4 (01:34→21:23)
[2017-12-16 05:09] LABS: Basophils % 0.5 % (0.0-0.8); Eosinophils # 0.2 10*3/uL (0.0-0.87); Eosinophils % 2.6 % (0.00-10.9); Hematocrit 29.6 VOL% (35.7-47.0); Hemoglobin 9.5 GM/DL (12.0-16.0); Immature Granulocytes % 0.5 %; Immature Granulocytes Absolute 0.04 #; Lymphocytes # 2.4 10*3/uL (1.4-4.0); Lymphocytes % 29.3 % (21.3-54.2); Mean Corpuscular HGB Conc 32.1 GM/DL (32-36); Mean Corpuscular Hemoglobin 28 PG (27-34); Mean Corpuscular Volume 85.8 FL (87-102); Mean Platelet Volume 9.7 FL (9.6-12.0); Monocytes # 0.8 10*3/uL (0.11-0.8); Monocytes % 10.3 % (1.7-12.7); Neutrophils # 4.7 10*3/uL (1.4-7.4); Neutrophils % 56.8 % (38.7-73.9); Platelet Count 257 T/CUMM (130-400); Red Blood Count 3.45 MC/CUMM (3.8-5.5); Red Cell Distribution Width 16.3 % (9.3-17.3); White Blood Count 8.2 T/CUMM (4-12)
[2017-12-16 05:10] LABS: INR 1.9; PT Patient Result 19.6 SECS
[2017-12-16 05:45] LABS: % Iron Saturation 8.8 % (18-50); Ferritin 42.2 ng/ml (8-252)
[2017-12-16 05:58] LABS: Folate 13.4 NG/ML (5.4-24.0); Vitamin B12 359 PG/ML (211-911)
[2017-12-16 06:57] LABS: Sedimentation Rate-Westergren 79 MM/HR (0-30)
[2017-12-16] MEDS: BENZONATATE 100 MG CAPSULE PO SCH ×3 (08:39→21:23)
[2017-12-16] MEDS: MONTELUKAST 10 MG TABLET PO SCH (08:39)
[2017-12-16] MEDS: PANTOPRAZOLE 40 MG TABLET PO SCH ×2 (08:39→21:23)
[2017-12-16] MEDS: FUROSEMIDE 40 MG TABLET PO SCH (08:39)
[2017-12-16] MEDS: ASPIRIN EC 81 MG TABLET PO SCH (08:40)
[2017-12-16] MEDS: METOPROLOL TARTRATE 25 MG TABLET PO SCH ×2 (08:40→21:23)
[2017-12-16] MEDS: POTASSIUM CHLORIDE 20 MEQ TABLET PO SCH (08:40)
[2017-12-16 10:48] LABS: Hemoglobin A1 (Alkaline) 97.8 % (96.5-98.5); Hemoglobin A2 (Alkaline) 2.2 % (1.5-3.5)
[2017-12-16] MEDS: FERROUS SULFATE 325 MG TABLET PO SCH ×2 (12:38→21:23)
[2017-12-16] MEDS ORDERED: WARFARIN 7.5 MG TABLET PO SCH (18:00)
[2017-12-16] MEDS: GABAPENTIN 300 MG CAPSULE PO SCH (21:23)
[2017-12-16] MEDS: AZITHROMYCIN 250 MG TABLET PO SCH (21:23)
[2017-12-16] MEDS: ROSUVASTATIN 20 MG TABLET PO SCH (21:23)
[2017-12-16] MEDS: DOCUSATE SODIUM 100 MG CAPSULE PO PRN (21:36)
[2017-12-16] MEDS: cefTRIAXone 1,000 MG in SYRINGE 1 EACH IV SCH (23:21)
[2017-12-17] MEDS: ALBUTEROL/IPRATROPIUM 3 ML NEB RESP TX SCH ×4 (01:08→19:20)
[2017-12-17] MEDS: HYDROmorphone 2 MG/1 ML VIAL IV PRN ×5 (02:12→17:34)
[2017-12-17 05:16] LABS: INR 1.8; PT Patient Result 18.2 SECS
[2017-12-17] MEDS: POTASSIUM CHLORIDE 20 MEQ TABLET PO SCH (09:02)
[2017-12-17] MEDS: MONTELUKAST 10 MG TABLET PO SCH (09:02)
[2017-12-17] MEDS: BENZONATATE 100 MG CAPSULE PO SCH ×3 (09:02→20:58)
[2017-12-17] MEDS: ASPIRIN EC 81 MG TABLET PO SCH (09:02)
[2017-12-17] MEDS: FERROUS SULFATE 325 MG TABLET PO SCH ×2 (09:02→20:59)
[2017-12-17] MEDS: FUROSEMIDE 40 MG TABLET PO SCH (09:02)
[2017-12-17] MEDS: PANTOPRAZOLE 40 MG TABLET PO SCH ×2 (09:02→20:59)
[2017-12-17] MEDS: METOPROLOL TARTRATE 25 MG TABLET PO SCH ×2 (09:03→20:59)
[2017-12-17] MEDS: ONDANSETRON 4 MG/2 ML VIAL IV PRN ×2 (09:11→13:54)
[2017-12-17] MEDS ORDERED: WARFARIN 3 MG TABLET PO SCH (12:53)
[2017-12-17] MEDS: GABAPENTIN 300 MG CAPSULE PO SCH (20:59)
[2017-12-17] MEDS: DOCUSATE SODIUM 100 MG CAPSULE PO PRN (20:59)
[2017-12-17] MEDS: AZITHROMYCIN 250 MG TABLET PO SCH (20:59)
[2017-12-17] MEDS: ROSUVASTATIN 20 MG TABLET PO SCH (20:59)
[2017-12-18] MEDS: ALBUTEROL/IPRATROPIUM 3 ML NEB RESP TX SCH ×4 (00:25→20:17)
[2017-12-18] MEDS: HYDROmorphone 2 MG/1 ML VIAL IV PRN ×4 (01:27→22:47)
[2017-12-18] MEDS: cefTRIAXone 1,000 MG in SYRINGE 1 EACH IV SCH (01:27)
[2017-12-18 05:20] LABS: Basophils # 0.1 10*3/uL (0.0-0.2); Basophils % 0.7 % (0.0-0.8); Eosinophils # 0.4 10*3/uL (0.0-0.87); Hematocrit 31.4 VOL% (35.7-47.0); Immature Granulocytes % 0.3 %; Immature Granulocytes Absolute 0.02 #; Lymphocytes # 2.5 10*3/uL (1.4-4.0); Mean Corpuscular HGB Conc 31.8 GM/DL (32-36); Mean Corpuscular Hemoglobin 27 PG (27-34); Mean Corpuscular Volume 84.2 FL (87-102); Mean Platelet Volume 9.6 FL (9.6-12.0); Monocytes # 0.8 10*3/uL (0.11-0.8); Monocytes % 10.6 % (1.7-12.7); Neutrophils # 3.6 10*3/uL (1.4-7.4); Neutrophils % 49.4 % (38.7-73.9); Platelet Count 303 T/CUMM (130-400); Red Blood Count 3.73 MC/CUMM (3.8-5.5); Red Cell Distribution Width 16.1 % (9.3-17.3); White Blood Count 7.3 T/CUMM (4-12)
[2017-12-18 05:32] LABS: INR 1.8
[2017-12-18 05:51] LABS: Calcium 8.7 MG/DL (8.5-10.1); Osmolality,Calculated 273.7 MOS/KG (273-304); Potassium 3.7 MMOL/L (3.5-5.1)
[2017-12-18] MEDS: ONDANSETRON 4 MG/2 ML VIAL IV PRN ×3 (09:07→22:48)
[2017-12-18] MEDS: PANTOPRAZOLE 40 MG TABLET PO SCH ×2 (09:08→21:01)
[2017-12-18] MEDS: METOPROLOL TARTRATE 25 MG TABLET PO SCH ×2 (09:08→21:01)
[2017-12-18] MEDS: BENZONATATE 100 MG CAPSULE PO SCH ×3 (09:08→21:00)
[2017-12-18] MEDS: ASPIRIN EC 81 MG TABLET PO SCH (09:08)
[2017-12-18] MEDS: MONTELUKAST 10 MG TABLET PO SCH (09:08)
[2017-12-18] MEDS: FUROSEMIDE 40 MG TABLET PO SCH (09:08)
[2017-12-18] MEDS: POTASSIUM CHLORIDE 20 MEQ TABLET PO SCH (09:08)
[2017-12-18] MEDS: FERROUS SULFATE 325 MG TABLET PO SCH ×2 (09:08→21:01)
[2017-12-18] MEDS: ROSUVASTATIN 20 MG TABLET PO SCH (21:00)
[2017-12-18] MEDS: AZITHROMYCIN 250 MG TABLET PO SCH (21:00)
[2017-12-18] MEDS: GABAPENTIN 300 MG CAPSULE PO SCH (21:01)
[2017-12-18] MEDS: WARFARIN 10 MG TABLET PO SCH (22:38)
[2017-12-19] MEDS: ALBUTEROL/IPRATROPIUM 3 ML NEB RESP TX SCH ×4 (01:19→19:23)
[2017-12-19] MEDS: HYDROmorphone 2 MG/1 ML VIAL IV PRN ×6 (01:56→23:39)
[2017-12-19] MEDS: cefTRIAXone 1,000 MG in SYRINGE 1 EACH IV SCH (02:11)
[2017-12-19] MEDS: ONDANSETRON 4 MG/2 ML VIAL IV PRN ×4 (03:20→23:39)
[2017-12-19] MEDS: METOPROLOL TARTRATE 25 MG TABLET PO SCH ×2 (09:01→20:46)
[2017-12-19] MEDS: PANTOPRAZOLE 40 MG TABLET PO SCH ×2 (09:01→20:46)
[2017-12-19] MEDS: ASPIRIN EC 81 MG TABLET PO SCH (09:01)
[2017-12-19] MEDS: BENZONATATE 100 MG CAPSULE PO SCH ×3 (09:01→20:46)
[2017-12-19] MEDS: FUROSEMIDE 40 MG TABLET PO SCH (09:01)
[2017-12-19] MEDS: FERROUS SULFATE 325 MG TABLET PO SCH ×2 (09:01→20:46)
[2017-12-19] MEDS: MONTELUKAST 10 MG TABLET PO SCH (09:01)
[2017-12-19] MEDS: POTASSIUM CHLORIDE 20 MEQ TABLET PO SCH (09:02)
[2017-12-19] MEDS: WARFARIN 10 MG TABLET PO SCH (18:11)
[2017-12-19] MEDS: ROSUVASTATIN 20 MG TABLET PO SCH (20:46)
[2017-12-19] MEDS: GABAPENTIN 300 MG CAPSULE PO SCH (20:46)
[2017-12-19] MEDS ORDERED: DILTIAZEM 100 MG VIAL.ADD IV ONE (21:33)
[2017-12-19] MEDS: DILTIAZEM INJ 100 MG in SODIUM CHLORIDE 0.9% 100 ML IV SCH (21:41)
[2017-12-20] MEDS: ALBUTEROL/IPRATROPIUM 3 ML NEB RESP TX SCH ×4 (01:10→20:00)
[2017-12-20] MEDS: HYDROmorphone 2 MG/1 ML VIAL IV PRN ×7 (04:09→23:32)
[2017-12-20] MEDS: ONDANSETRON 4 MG/2 ML VIAL IV PRN ×4 (04:10→20:51)
[2017-12-20 04:47] LABS: INR 2.6
[2017-12-20 04:53] LABS: PT Patient Result 26.8 SECS
[2017-12-20] MEDS: DILTIAZEM INJ 100 MG in SODIUM CHLORIDE 0.9% 100 ML IV SCH ×2 (06:01→14:54)
[2017-12-20] MEDS: MONTELUKAST 10 MG TABLET PO SCH (09:17)
[2017-12-20] MEDS: ASPIRIN EC 81 MG TABLET PO SCH (09:17)
[2017-12-20] MEDS: METOPROLOL TARTRATE 25 MG TABLET PO SCH ×2 (09:17→20:57)
[2017-12-20] MEDS: PANTOPRAZOLE 40 MG TABLET PO SCH ×2 (09:17→21:34)
[2017-12-20] MEDS: BENZONATATE 100 MG CAPSULE PO SCH ×3 (09:17→20:58)
[2017-12-20] MEDS: POTASSIUM CHLORIDE 20 MEQ TABLET PO SCH (09:17)
[2017-12-20] MEDS: FUROSEMIDE 40 MG TABLET PO SCH (09:17)
[2017-12-20] MEDS: FERROUS SULFATE 325 MG TABLET PO SCH ×2 (09:17→20:57)
[2017-12-20] MEDS: cefTRIAXone 1,000 MG in SYRINGE 1 EACH IV SCH (17:27)
[2017-12-20] MEDS: WARFARIN 10 MG TABLET PO SCH (17:36)
[2017-12-20] MEDS: GABAPENTIN 300 MG CAPSULE PO SCH (20:58)
[2017-12-20] MEDS: ROSUVASTATIN 20 MG TABLET PO SCH (21:34)
[2017-12-21] MEDS: DILTIAZEM INJ 100 MG in SODIUM CHLORIDE 0.9% 100 ML IV SCH (00:21)
[2017-12-21] MEDS: ALBUTEROL/IPRATROPIUM 3 ML NEB RESP TX SCH ×4 (01:10→19:50)
[2017-12-21] MEDS: ONDANSETRON 4 MG/2 ML VIAL IV PRN ×3 (02:28→23:27)
[2017-12-21] MEDS: HYDROmorphone 2 MG/1 ML VIAL IV PRN ×6 (02:30→20:59)
[2017-12-21 05:23] LABS: Basophils # 0.1 10*3/uL (0.0-0.2); Basophils % 0.7 % (0.0-0.8); Eosinophils # 0.4 10*3/uL (0.0-0.87); Eosinophils % 4.4 % (0.00-10.9); Hematocrit 34.8 VOL% (35.7-47.0); Hemoglobin 11.2 GM/DL (12.0-16.0); Immature Granulocytes % 0.3 %; Immature Granulocytes Absolute 0.03 #; Lymphocytes # 2.9 10*3/uL (1.4-4.0); Lymphocytes % 31.9 % (21.3-54.2); Mean Corpuscular HGB Conc 32.2 GM/DL (32-36); Mean Corpuscular Hemoglobin 27 PG (27-34); Mean Corpuscular Volume 84.9 FL (87-102); Mean Platelet Volume 9.7 FL (9.6-12.0); Monocytes % 11.1 % (1.7-12.7); Neutrophils # 4.8 10*3/uL (1.4-7.4); Neutrophils % 51.6 % (38.7-73.9); Platelet Count 373 T/CUMM (130-400); Red Cell Distribution Width 16.4 % (9.3-17.3); White Blood Count 9.2 T/CUMM (4-12)
[2017-12-21 05:44] LABS: INR 3.7
[2017-12-21 05:52] LABS: PT Patient Result 37.2 SECS
[2017-12-21 05:53] LABS: Alanine Aminotransferase 22 U/L (13-56); Albumin 3.2 G/DL (3.4-5.0); Alkaline Phosphatase 114 U/L (45-117); Aspartate Amino Transferase 21 U/L (0-37); Bilirubin,Total < 0.39 MG/DL (0.2-1.0); Blood Urea Nitrogen 6 MG/DL (7-18); Calcium 8.9 MG/DL (8.5-10.1); Glucose 102 MG/DL (74-106); Osmolality,Calculated 270.8 MOS/KG (273-304); Potassium 4.2 MMOL/L (3.5-5.1); Sodium 137 MMOL/L (136-145); Total Protein 6.8 G/DL (6.4-8.3)
[2017-12-21] MEDS: FERROUS SULFATE 325 MG TABLET PO SCH ×2 (08:36→20:59)
[2017-12-21] MEDS: POTASSIUM CHLORIDE 20 MEQ TABLET PO SCH (08:36)
[2017-12-21] MEDS: ASPIRIN EC 81 MG TABLET PO SCH (08:36)
[2017-12-21] MEDS: MONTELUKAST 10 MG TABLET PO SCH (08:36)
[2017-12-21] MEDS: FUROSEMIDE 40 MG TABLET PO SCH (08:36)
[2017-12-21] MEDS: PANTOPRAZOLE 40 MG TABLET PO SCH ×2 (08:36→20:58)
[2017-12-21] MEDS: METOPROLOL TARTRATE 25 MG TABLET PO SCH (08:36)
[2017-12-21] MEDS: BENZONATATE 100 MG CAPSULE PO SCH ×3 (08:36→20:58)
[2017-12-21] MEDS ORDERED: FLECAINIDE 100 MG TABLET PO SCH (11:30)
[2017-12-21] MEDS: NEBIVOLOL 10 MG TABLET PO SCH (12:10)
[2017-12-21] MEDS ORDERED: AMIODARONE INJ 450 MG in DEXTROSE 5% 241 ML IV SCH ×2 (12:30→20:00)
[2017-12-21] MEDS ORDERED: MORPHINE ER 30 MG TABLET PO SCH (13:00)
[2017-12-21] MEDS: HYDROmorphone 2 MG TABLET PO PRN ×2 (14:08→23:26)
[2017-12-21] MEDS: cefTRIAXone 1,000 MG in SYRINGE 1 EACH IV SCH (16:59)
[2017-12-21] MEDS: ROSUVASTATIN 20 MG TABLET PO SCH (20:59)
[2017-12-21] MEDS: GABAPENTIN 300 MG CAPSULE PO SCH (20:59)
[2017-12-22] MEDS: HYDROmorphone 2 MG/1 ML VIAL IV PRN ×4 (00:58→21:16)
[2017-12-22] MEDS: ALBUTEROL/IPRATROPIUM 3 ML NEB RESP TX SCH ×4 (01:42→18:58)
[2017-12-22 04:55] LABS: INR 4.3
[2017-12-22 04:56] LABS: PT Patient Result 43.3 SECS
[2017-12-22] MEDS: ASPIRIN EC 81 MG TABLET PO SCH (08:48)
[2017-12-22] MEDS: NEBIVOLOL 10 MG TABLET PO SCH (08:48)
[2017-12-22] MEDS: AMIODARONE 200 MG TABLET PO SCH ×2 (08:48→21:15)
[2017-12-22] MEDS ORDERED: PEGFILGRASTIM 6 MG/0.6 ML SYRINGE SUBCUT ONE (10:00)
[2017-12-22] MEDS ORDERED: BUPIVACAINE 0.5% 50 ML VIAL ONE (11:02)
[2017-12-22] MEDS ORDERED: TRIAMCINOLONE ACETONIDE 40 MG/1 ML VIAL ONE ×2 (11:02→11:09)
[2017-12-22] MEDS: BENZONATATE 100 MG CAPSULE PO SCH ×3 (11:47→21:15)
[2017-12-22] MEDS ORDERED: PROPOFOL 200 MG/20 ML VIAL IV ONE (12:10)
[2017-12-22] MEDS ORDERED: LACTATED RINGERS 1,000 ML IV ONE (12:10)
[2017-12-22] MEDS ORDERED: ETOMIDATE 40 MG/20 ML VIAL IV ONE (12:10)
[2017-12-22] MEDS: DILTIAZEM CD 120 MG CAPSULE PO SCH (13:48)
[2017-12-22] MEDS: MONTELUKAST 10 MG TABLET PO SCH (13:49)
[2017-12-22] MEDS: PANTOPRAZOLE 40 MG TABLET PO SCH ×2 (13:49→21:15)
[2017-12-22] MEDS: FERROUS SULFATE 325 MG TABLET PO SCH ×2 (13:49→21:15)
[2017-12-22] MEDS: FUROSEMIDE 40 MG TABLET PO SCH (13:49)
[2017-12-22] MEDS: POTASSIUM CHLORIDE 20 MEQ TABLET PO SCH (13:49)
[2017-12-22] MEDS: cefTRIAXone 1,000 MG in SYRINGE 1 EACH IV SCH (17:39)
[2017-12-22] MEDS: GABAPENTIN 300 MG CAPSULE PO SCH (21:15)
[2017-12-22] MEDS: ROSUVASTATIN 20 MG TABLET PO SCH (21:15)
[2017-12-23] MEDS: HYDROmorphone 2 MG/1 ML VIAL IV PRN ×4 (01:10→12:45)
[2017-12-23] MEDS: ALBUTEROL/IPRATROPIUM 3 ML NEB RESP TX SCH ×3 (01:28→13:00)
[2017-12-23] MEDS: ONDANSETRON 4 MG/2 ML VIAL IV PRN ×2 (05:06→12:47)
[2017-12-23 05:34] LABS: INR 3.3
[2017-12-23 05:39] LABS: PT Patient Result 33.5 SECS
[2017-12-23 05:55] LABS: Calcium 8.7 MG/DL (8.5-10.1); Osmolality,Calculated 273.8 MOS/KG (273-304); Potassium 3.8 MMOL/L (3.5-5.1)
[2017-12-23] MEDS ORDERED: PROPOFOL 200 MG/20 ML VIAL IV ONE (07:23)
[2017-12-23] MEDS ORDERED: ETOMIDATE 40 MG/20 ML VIAL IV ONE (07:23)
[2017-12-23] MEDS ORDERED: WARFARIN 10 MG TABLET PO SCH (07:24)
[2017-12-23] MEDS ORDERED: AMIODARONE 200 MG TABLET PO SCH (07:24)
[2017-12-23] MEDS: BENZONATATE 100 MG CAPSULE PO SCH (08:47)
[2017-12-23] MEDS: NEBIVOLOL 10 MG TABLET PO SCH (08:47)
[2017-12-23] MEDS: DILTIAZEM CD 120 MG CAPSULE PO SCH (08:48)
[2017-12-23] MEDS: ASPIRIN EC 81 MG TABLET PO SCH (08:48)
[2017-12-23] MEDS: MONTELUKAST 10 MG TABLET PO SCH (08:48)
[2017-12-23] MEDS: FUROSEMIDE 40 MG TABLET PO SCH (08:48)
[2017-12-23] MEDS: POTASSIUM CHLORIDE 20 MEQ TABLET PO SCH (08:49)
[2017-12-23] MEDS: PANTOPRAZOLE 40 MG TABLET PO SCH (08:49)
[2017-12-23] MEDS: FERROUS SULFATE 325 MG TABLET PO SCH (08:49)
[2017-12-23 11:52] VITALS: BP 124/80
[2017-12-23] MEDS ORDERED: WARFARIN 5 MG TABLET PO SCH (18:00)
== END 2017-12-23 13:37 | disposition home or self-care (01) | DRG 202 ==
LOC: N.ED 10:52 → N.EDINP 18:50 → SUATTDRO 18:51 → N.TELEN 20:35
PROVIDERS: ADMIT Hospitalist; ATTEND Internal Medicine

== ENCOUNTER 2017-12-23 20:51 | Inpatient (IN) ==
[2017-12-23] MEDS ORDERED: DILTIAZEM 50 MG/10 ML VIAL IV STA (23:11)
[2017-12-23] MEDS ORDERED: HYDROmorphone 2 MG/1 ML VIAL IV STA (23:16)
[2017-12-23] MEDS ORDERED: ONDANSETRON 4 MG/2 ML VIAL IV STA (23:17)
[2017-12-23 23:21] LABS: Basophils % 0.1 % (0.0-0.8); Hemoglobin 10.3 GM/DL (12.0-16.0); Immature Granulocytes % 0.6 %; Immature Granulocytes Absolute 0.06 #; Lymphocytes # 1.9 10*3/uL (1.4-4.0); Lymphocytes % 20.5 % (21.3-54.2); Mean Corpuscular HGB Conc 32.2 GM/DL (32-36); Mean Corpuscular Hemoglobin 27 PG (27-34); Mean Corpuscular Volume 85.1 FL (87-102); Mean Platelet Volume 9.5 FL (9.6-12.0); Monocytes # 0.6 10*3/uL (0.11-0.8); Monocytes % 6.6 % (1.7-12.7); Neutrophils # 6.7 10*3/uL (1.4-7.4); Neutrophils % 72.2 % (38.7-73.9); Platelet Count 359 T/CUMM (130-400); Red Blood Count 3.76 MC/CUMM (3.8-5.5); Red Cell Distribution Width 16.6 % (9.3-17.3); White Blood Count 9.3 T/CUMM (4-12)
[2017-12-23] MEDS ORDERED: ONDANSETRON 4 MG/2 ML VIAL ONE (23:21)
[2017-12-23] MEDS ORDERED: DILTIAZEM 50 MG/10 ML VIAL IV ONE (23:22)
[2017-12-23] MEDS ORDERED: HYDROmorphone 2 MG/1 ML VIAL ONE (23:22)
[2017-12-23] MEDS ORDERED: LORazepam 2 MG/1 ML VIAL IV STA (23:27)
[2017-12-23] MEDS ORDERED: DILTIAZEM INJ 100 MG in SODIUM CHLORIDE 0.9% 100 ML IV SCH (23:30)
[2017-12-23 23:32] LABS: INR 2.3; Partial Thromboplastin Time 38.1 SECS (0-40)
[2017-12-23 23:34] LABS: PT Patient Result 23.4 SECS
[2017-12-23 23:42] LABS: Alanine Aminotransferase 19 U/L (13-56); Albumin 3.4 G/DL (3.4-5.0); Alkaline Phosphatase 106 U/L (45-117); Aspartate Amino Transferase 23 U/L (0-37); Bilirubin,Total < 0.39 MG/DL (0.2-1.0); Blood Urea Nitrogen 15 MG/DL (7-18); Calcium 9.1 MG/DL (8.5-10.1); Glucose 120 MG/DL (74-106); Osmolality,Calculated 278.5 MOS/KG (273-304); Potassium 3.9 MMOL/L (3.5-5.1); Sodium 139 MMOL/L (136-145); Total Protein 6.9 G/DL (6.4-8.3); Troponin I Only 0.018 NG/ML (0.00-0.045)
[2017-12-23] MEDS ORDERED: DILTIAZEM 100 MG VIAL.ADD IV ONE (23:44)
[2017-12-23] MEDS ORDERED: LORazepam 2 MG/1 ML VIAL ONE (23:45)
[2017-12-24] MEDS ORDERED: CIPROFLOXACIN 500 MG TABLET PO SCH (01:30)
[2017-12-24] MEDS ORDERED: ZALEPLON 5 MG CAPSULE PO PRN (01:32)
[2017-12-24] MEDS: AMIODARONE 200 MG TABLET PO SCH ×4 (02:59→20:45)
[2017-12-24] MEDS: PANTOPRAZOLE 40 MG TABLET PO SCH ×3 (02:59→20:45)
[2017-12-24 04:46] LABS: Basophils % 0.1 % (0.0-0.8); Hematocrit 29.2 VOL% (35.7-47.0); Hemoglobin 9.4 GM/DL (12.0-16.0); Immature Granulocytes % 0.5 %; Immature Granulocytes Absolute 0.04 #; Lymphocytes # 1.5 10*3/uL (1.4-4.0); Lymphocytes % 20.1 % (21.3-54.2); Mean Corpuscular HGB Conc 32.2 GM/DL (32-36); Mean Corpuscular Hemoglobin 28 PG (27-34); Mean Corpuscular Volume 86.1 FL (87-102); Mean Platelet Volume 9.7 FL (9.6-12.0); Monocytes # 0.5 10*3/uL (0.11-0.8); Monocytes % 6.7 % (1.7-12.7); Neutrophils # 5.5 10*3/uL (1.4-7.4); Neutrophils % 72.6 % (38.7-73.9); Platelet Count 321 T/CUMM (130-400); Red Blood Count 3.39 MC/CUMM (3.8-5.5); White Blood Count 7.6 T/CUMM (4-12)
[2017-12-24 05:07] LABS: Calcium 8.4 MG/DL (8.5-10.1); Osmolality,Calculated 277.5 MOS/KG (273-304)
[2017-12-24 06:23] LABS: INR 2.1
[2017-12-24 06:32] LABS: PT Patient Result 21.1 SECS
[2017-12-24] MEDS: ALBUTEROL/IPRATROPIUM 3 ML NEB RESP TX SCH ×3 (07:19→19:13)
[2017-12-24] MEDS: BENZONATATE 100 MG CAPSULE PO SCH ×3 (08:56→20:45)
[2017-12-24] MEDS: MONTELUKAST 10 MG TABLET PO SCH (08:57)
[2017-12-24] MEDS: POTASSIUM CHLORIDE 20 MEQ TABLET PO SCH (08:57)
[2017-12-24] MEDS: ASPIRIN EC 81 MG TABLET PO SCH (08:57)
[2017-12-24] MEDS ORDERED: FUROSEMIDE 40 MG TABLET PO SCH (09:00)
[2017-12-24] MEDS ORDERED: DILTIAZEM CD 120 MG CAPSULE PO SCH (09:00)
[2017-12-24] MEDS ORDERED: NEBIVOLOL 10 MG TABLET PO SCH (09:00)
[2017-12-24] MEDS: GABAPENTIN 300 MG CAPSULE PO PRN ×2 (11:44→20:44)
[2017-12-24] MEDS: HYDROmorphone 2 MG/1 ML VIAL IV PRN ×2 (12:26→17:55)
[2017-12-24] MEDS: ONDANSETRON 4 MG/2 ML VIAL IV PRN (17:53)
[2017-12-24] MEDS ORDERED: WARFARIN 3 MG TABLET PO SCH (18:00)
[2017-12-24] MEDS ORDERED: WARFARIN 5 MG TABLET PO SCH (18:00)
[2017-12-24] MEDS: FUROSEMIDE 40 MG TABLET PO SCH (20:44)
[2017-12-24] MEDS: ROSUVASTATIN 20 MG TABLET PO SCH (20:44)
[2017-12-24] MEDS: DILTIAZEM CD 120 MG CAPSULE PO SCH (20:45)
[2017-12-24] MEDS: NEBIVOLOL 10 MG TABLET PO SCH (20:57)
[2017-12-25] MEDS: HYDROmorphone 2 MG/1 ML VIAL IV PRN ×3 (00:15→13:27)
[2017-12-25] MEDS: ALBUTEROL/IPRATROPIUM 3 ML NEB RESP TX SCH ×2 (03:28→07:57)
[2017-12-25] MEDS: BENZONATATE 100 MG CAPSULE PO SCH ×3 (08:11→21:50)
[2017-12-25] MEDS: DILTIAZEM CD 120 MG CAPSULE PO SCH (08:12)
[2017-12-25] MEDS: MONTELUKAST 10 MG TABLET PO SCH (08:13)
[2017-12-25] MEDS: AMIODARONE 200 MG TABLET PO SCH ×2 (08:13→21:50)
[2017-12-25] MEDS: ASPIRIN EC 81 MG TABLET PO SCH (08:14)
[2017-12-25] MEDS: PANTOPRAZOLE 40 MG TABLET PO SCH ×2 (08:14→21:50)
[2017-12-25] MEDS: FUROSEMIDE 40 MG TABLET PO SCH ×2 (08:14→21:50)
[2017-12-25] MEDS: NEBIVOLOL 10 MG TABLET PO SCH ×2 (08:14→21:50)
[2017-12-25] MEDS: POTASSIUM CHLORIDE 20 MEQ TABLET PO SCH (08:15)
[2017-12-25] MEDS: NYSTATIN 500,000 UNIT/5 ML UDCUP SWISH/SWAL SCH ×3 (13:28→21:49)
[2017-12-25 15:19] LABS: Apearance,Urine Clear (Clear); Bilirubin,Urine Negative (Negative); Blood, Urine Negative (Negative); Glucose,Urine (UA) Negative (Negative); Ketones,Urine Negative (Negative); Nitrite,Urine Negative (Negative); Protein,Urine Negative; Urine Color Yellow (Yellow)
[2017-12-25] MEDS: ONDANSETRON 4 MG/2 ML VIAL IV PRN (21:49)
[2017-12-25] MEDS: DILTIAZEM CD 180 MG CAPSULE PO SCH (21:50)
[2017-12-25] MEDS: ROSUVASTATIN 20 MG TABLET PO SCH (21:50)
[2017-12-25] MEDS: GABAPENTIN 300 MG CAPSULE PO PRN (22:02)
[2017-12-25] MEDS ORDERED: traMADol 50 MG TABLET PO ONE (23:30)
[2017-12-26] MEDS: ONDANSETRON 4 MG/2 ML VIAL IV PRN ×2 (04:43→22:00)
[2017-12-26 06:24] LABS: Basophils % 0.1 % (0.0-0.8); Hematocrit 37.2 VOL% (35.7-47.0); Immature Granulocytes % 0.4 %; Immature Granulocytes Absolute 0.05 #; Lymphocytes # 2.5 10*3/uL (1.4-4.0); Lymphocytes % 22.2 % (21.3-54.2); Mean Corpuscular HGB Conc 32.5 GM/DL (32-36); Mean Corpuscular Hemoglobin 27 PG (27-34); Mean Corpuscular Volume 84.2 FL (87-102); Mean Platelet Volume 9.4 FL (9.6-12.0); Monocytes # 0.8 10*3/uL (0.11-0.8); Monocytes % 7.4 % (1.7-12.7); Neutrophils # 7.9 10*3/uL (1.4-7.4); Neutrophils % 69.9 % (38.7-73.9); Red Cell Distribution Width 16.7 % (9.3-17.3)
[2017-12-26 06:30] LABS: INR 1.8; PT Patient Result 18.2 SECS
[2017-12-26] MEDS ORDERED: ceFAZolin 1,000 MG VIAL IRRIG ONE (06:30)
[2017-12-26] MEDS ORDERED: ceFAZolin 1,000 MG in SYRINGE 1 EACH IV ONE (06:30)
[2017-12-26] MEDS ORDERED: ZALEPLON 5 MG CAPSULE PO PRN (06:38)
[2017-12-26 06:45] LABS: Red Blood Count 4.42 MC/CUMM (3.8-5.5); White Blood Count 11.2 T/CUMM (4-12)
[2017-12-26 06:46] LABS: Hemoglobin 12.1 GM/DL (12.0-16.0); Platelet Count 404 T/CUMM (130-400)
[2017-12-26 06:52] LABS: Osmolality,Calculated 275.8 MOS/KG (273-304); Potassium 3.8 MMOL/L (3.5-5.1)
[2017-12-26] MEDS ORDERED: ceFAZolin 1,000 MG VIAL ONE (07:36)
[2017-12-26] MEDS ORDERED: HEPARIN/NACL 0.9% 2 UNITS/ML 500 ML IV ONE (07:37)
[2017-12-26] MEDS ORDERED: MIDAZOLAM 2 MG/2 ML VIAL ONE ×3 (08:00→09:12)
[2017-12-26] MEDS ORDERED: fentaNYL 100 MCG/2 ML VIAL ONE ×3 (08:00→09:12)
[2017-12-26] MEDS ORDERED: TISSUE ADHESIVE 1 EACH APPLICATOR TOP ONE (09:09)
[2017-12-26] MEDS: NYSTATIN 500,000 UNIT/5 ML UDCUP SWISH/SWAL SCH ×4 (10:41→20:53)
[2017-12-26] MEDS: POTASSIUM CHLORIDE 20 MEQ TABLET PO SCH (10:42)
[2017-12-26] MEDS: NEBIVOLOL 10 MG TABLET PO SCH ×2 (10:42→20:50)
[2017-12-26] MEDS: BENZONATATE 100 MG CAPSULE PO SCH ×3 (10:42→20:51)
[2017-12-26] MEDS: ASPIRIN EC 81 MG TABLET PO SCH (10:43)
[2017-12-26] MEDS: MONTELUKAST 10 MG TABLET PO SCH (10:43)
[2017-12-26] MEDS: PANTOPRAZOLE 40 MG TABLET PO SCH ×2 (10:43→20:54)
[2017-12-26] MEDS: AMIODARONE 200 MG TABLET PO SCH ×2 (10:48→20:51)
[2017-12-26] MEDS: ONDANSETRON ODT 4 MG TABLET PO PRN ×2 (10:53→16:29)
[2017-12-26] MEDS: DILTIAZEM CD 180 MG CAPSULE PO SCH (11:02)
[2017-12-26] MEDS: FUROSEMIDE 40 MG TABLET PO SCH (11:02)
[2017-12-26] MEDS ORDERED: diphenhydrAMINE CAP 25 MG CAPSULE PO PRN (13:38)
[2017-12-26] MEDS: ceFAZolin 1,000 MG in SYRINGE 1 EACH IV SCH (17:25)
[2017-12-26] MEDS: ROSUVASTATIN 20 MG TABLET PO SCH (20:50)
[2017-12-26] MEDS: DILTIAZEM CD 240 MG CAPSULE PO SCH (20:52)
[2017-12-27] MEDS ORDERED: ceFAZolin 1,000 MG in SYRINGE 1 EACH IV SCH (04:00)
[2017-12-27 05:53] LABS: Basophils % 0.1 % (0.0-0.8); Hematocrit 35.3 VOL% (35.7-47.0); Hemoglobin 11.7 GM/DL (12.0-16.0); Immature Granulocytes % 0.3 %; Immature Granulocytes Absolute 0.03 #; Lymphocytes # 2.5 10*3/uL (1.4-4.0); Mean Corpuscular HGB Conc 33.1 GM/DL (32-36); Mean Corpuscular Hemoglobin 27 PG (27-34); Mean Corpuscular Volume 82.5 FL (87-102); Mean Platelet Volume 9.4 FL (9.6-12.0); Neutrophils % 66.6 % (38.7-73.9); Platelet Count 361 T/CUMM (130-400); Red Blood Count 4.28 MC/CUMM (3.8-5.5); Red Cell Distribution Width 16.2 % (9.3-17.3); White Blood Count 10.5 T/CUMM (4-12)
[2017-12-27 06:27] LABS: Calcium 8.7 MG/DL (8.5-10.1); Potassium 4.1 MMOL/L (3.5-5.1)
[2017-12-27] MEDS: ceFAZolin 1,000 MG in SYRINGE 1 EACH IV SCH (06:32)
[2017-12-27 07:38] VITALS: BP 96/67
[2017-12-27] MEDS ORDERED: cephALEXin 500 MG CAPSULE PO SCH (09:00)
[2017-12-27] MEDS ORDERED: FUROSEMIDE 40 MG TABLET PO SCH (09:00)
[2017-12-27] MEDS ORDERED: diphenhydrAMINE 50 MG/1 ML VIAL IV ONE (09:39)
[2017-12-27] MEDS: MONTELUKAST 10 MG TABLET PO SCH (09:57)
[2017-12-27] MEDS: NYSTATIN 500,000 UNIT/5 ML UDCUP SWISH/SWAL SCH (09:57)
[2017-12-27] MEDS: ASPIRIN EC 81 MG TABLET PO SCH (09:57)
[2017-12-27] MEDS: BENZONATATE 100 MG CAPSULE PO SCH (09:57)
[2017-12-27] MEDS: DILTIAZEM CD 240 MG CAPSULE PO SCH (09:57)
[2017-12-27] MEDS: AMIODARONE 200 MG TABLET PO SCH (09:57)
[2017-12-27] MEDS: POTASSIUM CHLORIDE 20 MEQ TABLET PO SCH (09:57)
[2017-12-27] MEDS: PANTOPRAZOLE 40 MG TABLET PO SCH (09:57)
[2017-12-27] MEDS: NEBIVOLOL 10 MG TABLET PO SCH (09:57)
[2017-12-31] MEDS ORDERED: PANTOPRAZOLE 40 MG TABLET PO SCH (09:00)
== END 2017-12-27 11:31 | disposition home or self-care (01) | DRG 243 ==
LOC: N.ED 20:51 → SUATTDRO 12-24 00:39 → N.EDINP 12-24 00:39 → N.TELES 12-24 01:48
PROVIDERS: ADMIT Internal Medicine

== ENCOUNTER 2018-11-21 15:35 | Inpatient (IN) ==
[2018-11-21] MEDS ORDERED: DOCUSATE SODIUM 100 MG CAPSULE PO PRN (15:37)
[2018-11-21] MEDS ORDERED: ACETAMINOPHEN 325 MG TABLET PO PRN (15:37)
[2018-11-21] MEDS ORDERED: MAGNESIUM SULF RIDER 2 GM in PREMIX 1 EACH IV PRN (15:37)
[2018-11-21] MEDS ORDERED: MAGNESIUM SULF RIDER 4 GM in PREMIX 1 EACH IV PRN (15:37)
[2018-11-21] MEDS ORDERED: ENOXAPARIN 100 MG/ML SYRINGE SUBCUT ONE (17:19)
[2018-11-21] MEDS ORDERED: MAGNESIUM HYDROXIDE SUSP 30 ML UDCUP PO PRN (17:22)
[2018-11-21] MEDS ORDERED: ONDANSETRON ODT 4 MG TABLET PO PRN (17:22)
[2018-11-21] MEDS ORDERED: dilTIAZem Drip 125 MG/125 ML PREMIX IV SCH (17:30)
[2018-11-21 19:49] LABS: Basophils % 0.1 % (0.0-0.8); Hematocrit 32.9 VOL% (35.7-47.0); Hemoglobin 9.8 GM/DL (12.0-16.0); Immature Granulocytes % 0.6 %; Immature Granulocytes Absolute 0.05 #; Lymphocytes % 11.4 % (21.3-54.2); Mean Corpuscular HGB Conc 29.8 GM/DL (32-36); Mean Corpuscular Hemoglobin 25 PG (27-34); Mean Corpuscular Volume 82.5 FL (87-102); Mean Platelet Volume 9.3 FL (9.6-12.0); Monocytes # 0.3 10*3/uL (0.11-0.8); Monocytes % 2.9 % (1.7-12.7); NRBC # 0.02 10*3/uL; Neutrophils # 7.2 10*3/uL (1.4-7.4); Platelet Count 323 T/CUMM (130-400); Red Blood Count 3.99 MC/CUMM (3.8-5.5); Red Cell Distribution Width 19.3 % (9.3-17.3); White Blood Count 8.5 T/CUMM (4-12)
[2018-11-21 20:04] LABS: INR 1.1; PT Patient Result 12.1 SECS
[2018-11-21 20:11] LABS: Alanine Aminotransferase 24 U/L (13-56); Albumin 3.1 G/DL (3.4-5.0); Alkaline Phosphatase 91 U/L (45-117); Aspartate Amino Transferase 11 U/L (0-37); Bilirubin,Total < 0.39 MG/DL (0.2-1.0); Blood Urea Nitrogen 21 MG/DL (7-18); Calcium 8.7 MG/DL (8.5-10.1); Glucose 141 MG/DL (74-106); Osmolality,Calculated 274.1 MOS/KG (273-304); Potassium 4.3 MMOL/L (3.5-5.1); Sodium 135 MMOL/L (136-145); Thyroid Stimulating Hormone 0.304 uIU/ml (0.358-3.74); Total Protein 7.2 G/DL (6.4-8.3)
[2018-11-21] MEDS: ONDANSETRON 4 MG/2 ML VIAL IV PRN (22:05)
[2018-11-21] MEDS: ROSUVASTATIN 20 MG TABLET PO SCH (22:06)
[2018-11-21] MEDS: GABAPENTIN 300 MG CAPSULE PO SCH (22:06)
[2018-11-21] MEDS: PANTOPRAZOLE 40 MG TABLET PO SCH (22:07)
[2018-11-21] MEDS: METOPROLOL SUCCINATE XL 100 MG TABLET PO SCH (22:08)
[2018-11-21] MEDS: ZALEPLON 5 MG CAPSULE PO PRN (22:08)
[2018-11-21] MEDS: MONTELUKAST 10 MG TABLET PO SCH (23:14)
[2018-11-22] MEDS: ZALEPLON 5 MG CAPSULE PO PRN ×2 (01:18→20:51)
[2018-11-22 01:36] LABS: Apearance,Urine CLEAR (Clear); Bilirubin,Urine Negative (Negative); Blood, Urine Negative (Negative); Glucose,Urine (UA) Negative (Negative); Ketones,Urine Negative (Negative); Nitrite,Urine Negative (Negative); Protein,Urine Negative; Squamous Epithelial Cell,Urine Occasional /HPF (0-10); Urine Color Yellow (Yellow); Urine Specific Gravity 1.015 (1.001-1.035); WBC,Urine <1 /HPF (0-6)
[2018-11-22 01:45] LABS: Hematocrit 30.8 VOL% (35.7-47.0); Hemoglobin 9.1 GM/DL (12.0-16.0); Immature Granulocytes % 0.5 %; Immature Granulocytes Absolute 0.05 #; Lymphocytes # 1.2 10*3/uL (1.4-4.0); Lymphocytes % 12.7 % (21.3-54.2); Mean Corpuscular HGB Conc 29.5 GM/DL (32-36); Mean Corpuscular Hemoglobin 24 PG (27-34); Mean Corpuscular Volume 81.7 FL (87-102); Mean Platelet Volume 9.1 FL (9.6-12.0); Monocytes # 0.4 10*3/uL (0.11-0.8); Monocytes % 4.4 % (1.7-12.7); NRBC # 0.02 10*3/uL; Neutrophils # 7.8 10*3/uL (1.4-7.4); Neutrophils % 82.4 % (38.7-73.9); Platelet Count 287 T/CUMM (130-400); Red Blood Count 3.77 MC/CUMM (3.8-5.5); White Blood Count 9.4 T/CUMM (4-12)
[2018-11-22 01:55] LABS: PT Patient Result 11.3 SECS
[2018-11-22 02:24] LABS: Alanine Aminotransferase 23 U/L (13-56); Albumin 2.8 G/DL (3.4-5.0); Alkaline Phosphatase 84 U/L (45-117); Aspartate Amino Transferase 11 U/L (0-37); Bilirubin,Total < 0.39 MG/DL (0.2-1.0); Blood Urea Nitrogen 22 MG/DL (7-18); Calcium 8.2 MG/DL (8.5-10.1); Glucose 154 MG/DL (74-106); Potassium 4.1 MMOL/L (3.5-5.1); Sodium 136 MMOL/L (136-145); Total Protein 6.4 G/DL (6.4-8.3)
[2018-11-22 02:32] LABS: Free T4 (Free Thyroxine) 0.9 NG/DL (0.76-1.46)
[2018-11-22] MEDS ORDERED: PANTOPRAZOLE 40 MG TABLET PO SCH (09:00)
[2018-11-22] MEDS ORDERED: FUROSEMIDE 40 MG TABLET PO SCH (09:00)
[2018-11-22] MEDS: POTASSIUM CHLORIDE 20 MEQ TABLET PO SCH (09:56)
[2018-11-22] MEDS: ASPIRIN EC 81 MG TABLET PO SCH (09:56)
[2018-11-22] MEDS: predniSONE 5 MG TABLET PO SCH (09:57)
[2018-11-22] MEDS: PANTOPRAZOLE 40 MG TABLET PO SCH ×2 (09:57→20:51)
[2018-11-22] MEDS: METOPROLOL SUCCINATE XL 100 MG TABLET PO SCH ×2 (09:58→20:51)
[2018-11-22] MEDS: ONDANSETRON 4 MG/2 ML VIAL IV PRN ×2 (11:21→20:52)
[2018-11-22] MEDS: FUROSEMIDE 40 MG/4 ML VIAL IV SCH ×2 (15:48→16:18)
[2018-11-22] MEDS: ROSUVASTATIN 20 MG TABLET PO SCH (20:51)
[2018-11-22] MEDS: diphenhydrAMINE CAP 25 MG CAPSULE PO PRN (20:51)
[2018-11-22] MEDS: GABAPENTIN 300 MG CAPSULE PO SCH (20:51)
[2018-11-22] MEDS: MONTELUKAST 10 MG TABLET PO SCH (20:51)
[2018-11-23 08:26] LABS: Basophils % 0.1 % (0.0-0.8); Eosinophils % 0.1 % (0.00-10.9); Hematocrit 33.3 VOL% (35.7-47.0); Hemoglobin 9.8 GM/DL (12.0-16.0); Immature Granulocytes % 0.7 %; Immature Granulocytes Absolute 0.07 #; Lymphocytes # 2.4 10*3/uL (1.4-4.0); Lymphocytes % 22.5 % (21.3-54.2); Mean Corpuscular HGB Conc 29.4 GM/DL (32-36); Mean Corpuscular Hemoglobin 24 PG (27-34); Mean Corpuscular Volume 81.2 FL (87-102); Mean Platelet Volume 8.8 FL (9.6-12.0); Monocytes # 0.7 10*3/uL (0.11-0.8); Neutrophils # 7.4 10*3/uL (1.4-7.4); Neutrophils % 69.6 % (38.7-73.9); Platelet Count 326 T/CUMM (130-400); White Blood Count 10.6 T/CUMM (4-12)
[2018-11-23 08:33] LABS: INR 0.9; PT Patient Result 10.2 SECS
[2018-11-23 08:42] LABS: Calcium 8.3 MG/DL (8.5-10.1); Osmolality,Calculated 270.4 MOS/KG (273-304); Potassium 4.2 MMOL/L (3.5-5.1)
[2018-11-23] MEDS: ASPIRIN EC 81 MG TABLET PO SCH (10:15)
[2018-11-23] MEDS: DILTIAZEM CD 240 MG CAPSULE PO SCH (10:15)
[2018-11-23] MEDS: ENOXAPARIN 120 MG/0.8 ML SYRINGE SUBCUT SCH ×2 (10:15→22:23)
[2018-11-23] MEDS: POTASSIUM CHLORIDE 20 MEQ TABLET PO SCH (10:18)
[2018-11-23] MEDS: predniSONE 5 MG TABLET PO SCH (10:19)
[2018-11-23] MEDS: PANTOPRAZOLE 40 MG TABLET PO SCH ×2 (10:19→22:16)
[2018-11-23] MEDS: METOPROLOL SUCCINATE XL 100 MG TABLET PO SCH ×2 (10:20→22:19)
[2018-11-23] MEDS: FUROSEMIDE 40 MG/4 ML VIAL IV SCH ×2 (10:26→17:46)
[2018-11-23] MEDS: ONDANSETRON 4 MG/2 ML VIAL IV PRN ×2 (10:32→22:22)
[2018-11-23] MEDS: FERRIC GLUCONATE COMPLEX 125 MG in SODIUM CHLORIDE 0.9% 100 ML IV SCH (14:18)
[2018-11-23] MEDS: DICLOFENAC 1.3% PATCH 5/PACK TRANSDERM SCH ×2 (14:23→22:15)
[2018-11-23] MEDS: WARFARIN 10 MG TABLET PO SCH (17:45)
[2018-11-23] MEDS: ZALEPLON 5 MG CAPSULE PO PRN (22:15)
[2018-11-23] MEDS: MONTELUKAST 10 MG TABLET PO SCH (22:15)
[2018-11-23] MEDS: ROSUVASTATIN 20 MG TABLET PO SCH (22:15)
[2018-11-23] MEDS: GABAPENTIN 300 MG CAPSULE PO SCH (22:16)
[2018-11-23] MEDS: diphenhydrAMINE CAP 25 MG CAPSULE PO PRN (22:16)
[2018-11-24] MEDS: ONDANSETRON 4 MG/2 ML VIAL IV PRN ×4 (03:20→21:37)
[2018-11-24 05:15] LABS: Basophils % 0.1 % (0.0-0.8); Eosinophils # 0.1 10*3/uL (0.0-0.87); Eosinophils % 0.5 % (0.00-10.9); Hematocrit 32.9 VOL% (35.7-47.0); Hemoglobin 9.9 GM/DL (12.0-16.0); Immature Granulocytes % 0.4 %; Immature Granulocytes Absolute 0.05 #; Lymphocytes # 3.5 10*3/uL (1.4-4.0); Lymphocytes % 30.8 % (21.3-54.2); Mean Corpuscular HGB Conc 30.1 GM/DL (32-36); Mean Corpuscular Hemoglobin 24 PG (27-34); Mean Corpuscular Volume 80.4 FL (87-102); Mean Platelet Volume 9.3 FL (9.6-12.0); Monocytes # 1.2 10*3/uL (0.11-0.8); Monocytes % 10.5 % (1.7-12.7); NRBC # 0.02 10*3/uL; Neutrophils # 6.5 10*3/uL (1.4-7.4); Neutrophils % 57.7 % (38.7-73.9); Platelet Count 320 T/CUMM (130-400); Red Blood Count 4.09 MC/CUMM (3.8-5.5); White Blood Count 11.3 T/CUMM (4-12)
[2018-11-24 05:20] LABS: PT Patient Result 10.4 SECS
[2018-11-24 05:41] LABS: Calcium 8.1 MG/DL (8.5-10.1); Osmolality,Calculated 280.7 MOS/KG (273-304); Potassium 3.3 MMOL/L (3.5-5.1)
[2018-11-24] MEDS: predniSONE 5 MG TABLET PO SCH (09:49)
[2018-11-24] MEDS: ASPIRIN EC 81 MG TABLET PO SCH (09:49)
[2018-11-24] MEDS: DILTIAZEM CD 240 MG CAPSULE PO SCH (09:49)
[2018-11-24] MEDS: POTASSIUM CHLORIDE 20 MEQ TABLET PO SCH (09:50)
[2018-11-24] MEDS: PANTOPRAZOLE 40 MG TABLET PO SCH ×2 (09:50→21:37)
[2018-11-24] MEDS: ENOXAPARIN 120 MG/0.8 ML SYRINGE SUBCUT SCH ×2 (09:50→21:35)
[2018-11-24] MEDS: FUROSEMIDE 40 MG/4 ML VIAL IV SCH ×2 (09:52→16:47)
[2018-11-24] MEDS: FERRIC GLUCONATE COMPLEX 125 MG in SODIUM CHLORIDE 0.9% 100 ML IV SCH (09:55)
[2018-11-24] MEDS: METOPROLOL SUCCINATE XL 100 MG TABLET PO SCH ×2 (09:59→21:36)
[2018-11-24] MEDS: DICLOFENAC 1.3% PATCH 5/PACK TRANSDERM SCH ×2 (10:02→21:38)
[2018-11-24] MEDS: WARFARIN 10 MG TABLET PO SCH (17:10)
[2018-11-24] MEDS: MONTELUKAST 10 MG TABLET PO SCH (21:35)
[2018-11-24] MEDS: ZALEPLON 5 MG CAPSULE PO PRN (21:35)
[2018-11-24] MEDS: ROSUVASTATIN 20 MG TABLET PO SCH (21:35)
[2018-11-24] MEDS: GABAPENTIN 300 MG CAPSULE PO SCH (21:36)
[2018-11-24] MEDS: diphenhydrAMINE CAP 25 MG CAPSULE PO PRN (21:37)
[2018-11-25] MEDS: ONDANSETRON 4 MG/2 ML VIAL IV PRN ×3 (03:16→21:27)
[2018-11-25 05:12] LABS: Basophils % 0.2 % (0.0-0.8); Eosinophils # 0.2 10*3/uL (0.0-0.87); Eosinophils % 1.5 % (0.00-10.9); Hematocrit 35.5 VOL% (35.7-47.0); Hemoglobin 10.6 GM/DL (12.0-16.0); Immature Granulocytes % 1.1 %; Immature Granulocytes Absolute 0.13 #; Lymphocytes # 3.8 10*3/uL (1.4-4.0); Lymphocytes % 30.8 % (21.3-54.2); Mean Corpuscular HGB Conc 29.9 GM/DL (32-36); Mean Corpuscular Hemoglobin 25 PG (27-34); Mean Platelet Volume 9.4 FL (9.6-12.0); Monocytes # 1.2 10*3/uL (0.11-0.8); Monocytes % 9.7 % (1.7-12.7); NRBC # 0.03 10*3/uL; Neutrophils % 56.7 % (38.7-73.9); Platelet Count 337 T/CUMM (130-400); Red Blood Count 4.33 MC/CUMM (3.8-5.5); Red Cell Distribution Width 18.7 % (9.3-17.3); White Blood Count 12.3 T/CUMM (4-12)
[2018-11-25 05:13] LABS: INR 1.1; PT Patient Result 12.4 SECS
[2018-11-25 05:27] LABS: Calcium 8.3 MG/DL (8.5-10.1); Osmolality,Calculated 277.8 MOS/KG (273-304); Potassium 3.2 MMOL/L (3.5-5.1)
[2018-11-25] MEDS: ENOXAPARIN 120 MG/0.8 ML SYRINGE SUBCUT SCH ×2 (09:58→22:15)
[2018-11-25] MEDS: FERRIC GLUCONATE COMPLEX 125 MG in SODIUM CHLORIDE 0.9% 100 ML IV SCH (10:05)
[2018-11-25] MEDS: FUROSEMIDE 40 MG/4 ML VIAL IV SCH ×2 (10:05→17:13)
[2018-11-25] MEDS: DILTIAZEM CD 240 MG CAPSULE PO SCH (10:15)
[2018-11-25] MEDS: POTASSIUM CHLORIDE 20 MEQ TABLET PO SCH (10:17)
[2018-11-25] MEDS: ASPIRIN EC 81 MG TABLET PO SCH (10:17)
[2018-11-25] MEDS: METOPROLOL SUCCINATE XL 100 MG TABLET PO SCH ×2 (10:18→22:16)
[2018-11-25] MEDS: DICLOFENAC 1.3% PATCH 5/PACK TRANSDERM SCH ×2 (10:18→22:15)
[2018-11-25] MEDS: PANTOPRAZOLE 40 MG TABLET PO SCH ×2 (10:18→22:15)
[2018-11-25] MEDS: predniSONE 5 MG TABLET PO SCH (10:18)
[2018-11-25] MEDS: WARFARIN 10 MG TABLET PO SCH (17:13)
[2018-11-25] MEDS: GABAPENTIN 300 MG CAPSULE PO SCH (22:15)
[2018-11-25] MEDS: MONTELUKAST 10 MG TABLET PO SCH (22:15)
[2018-11-25] MEDS: ROSUVASTATIN 20 MG TABLET PO SCH (22:15)
[2018-11-26 04:44] LABS: Basophils % 0.3 % (0.0-0.8); Eosinophils # 0.3 10*3/uL (0.0-0.87); Eosinophils % 2.1 % (0.00-10.9); Hematocrit 35.7 VOL% (35.7-47.0); Hemoglobin 10.7 GM/DL (12.0-16.0); Immature Granulocytes % 1.7 %; Lymphocytes # 3.4 10*3/uL (1.4-4.0); Mean Corpuscular Hemoglobin 24 PG (27-34); Mean Corpuscular Volume 81.3 FL (87-102); Mean Platelet Volume 9.3 FL (9.6-12.0); Monocytes # 0.8 10*3/uL (0.11-0.8); Monocytes % 6.9 % (1.7-12.7); NRBC # 0.04 10*3/uL; Neutrophils # 7.1 10*3/uL (1.4-7.4); Platelet Count 342 T/CUMM (130-400); Red Blood Count 4.39 MC/CUMM (3.8-5.5); Red Cell Distribution Width 19.2 % (9.3-17.3); White Blood Count 11.8 T/CUMM (4-12)
[2018-11-26 04:52] LABS: INR 1.3; PT Patient Result 13.9 SECS
[2018-11-26 04:56] LABS: Calcium 8.5 MG/DL (8.5-10.1); Osmolality,Calculated 275.1 MOS/KG (273-304); Potassium 3.5 MMOL/L (3.5-5.1)
[2018-11-26] MEDS: FUROSEMIDE 40 MG/4 ML VIAL IV SCH ×2 (09:29→16:27)
[2018-11-26] MEDS: ENOXAPARIN 120 MG/0.8 ML SYRINGE SUBCUT SCH ×2 (09:29→20:56)
[2018-11-26] MEDS: FERRIC GLUCONATE COMPLEX 125 MG in SODIUM CHLORIDE 0.9% 100 ML IV SCH (09:29)
[2018-11-26] MEDS: PANTOPRAZOLE 40 MG TABLET PO SCH ×2 (09:29→20:57)
[2018-11-26] MEDS: DILTIAZEM CD 240 MG CAPSULE PO SCH (09:30)
[2018-11-26] MEDS: ASPIRIN EC 81 MG TABLET PO SCH (09:30)
[2018-11-26] MEDS: DICLOFENAC 1.3% PATCH 5/PACK TRANSDERM SCH ×2 (09:30→20:56)
[2018-11-26] MEDS: POTASSIUM CHLORIDE 20 MEQ TABLET PO SCH (09:30)
[2018-11-26] MEDS: predniSONE 5 MG TABLET PO SCH (09:30)
[2018-11-26] MEDS: METOPROLOL SUCCINATE XL 100 MG TABLET PO SCH ×2 (09:33→20:57)
[2018-11-26] MEDS: ONDANSETRON 4 MG/2 ML VIAL IV PRN (09:37)
[2018-11-26] MEDS: WARFARIN 10 MG TABLET PO SCH (17:23)
[2018-11-26] MEDS ORDERED: WARFARIN 10 MG TABLET PO ONE (18:00)
[2018-11-26] MEDS: GABAPENTIN 300 MG CAPSULE PO SCH (20:56)
[2018-11-26] MEDS: MONTELUKAST 10 MG TABLET PO SCH (20:57)
[2018-11-26] MEDS: ROSUVASTATIN 20 MG TABLET PO SCH (20:58)
[2018-11-27 05:27] LABS: INR 1.2; PT Patient Result 12.8 SECS
[2018-11-27 08:06] LABS: Basophils % 0.4 % (0.0-0.8); Eosinophils # 0.3 10*3/uL (0.0-0.87); Eosinophils % 3.1 % (0.00-10.9); Hematocrit 33.5 VOL% (35.7-47.0); Lymphocytes % 29.6 % (21.3-54.2); Mean Corpuscular HGB Conc 29.9 GM/DL (32-36); Mean Corpuscular Hemoglobin 25 PG (27-34); Mean Corpuscular Volume 82.5 FL (87-102); Monocytes # 0.9 10*3/uL (0.11-0.8); Monocytes % 8.8 % (1.7-12.7); NRBC # 0.03 10*3/uL; Neutrophils # 5.7 10*3/uL (1.4-7.4); Neutrophils % 56.1 % (38.7-73.9); Platelet Count 311 T/CUMM (130-400); Red Blood Count 4.06 MC/CUMM (3.8-5.5); Red Cell Distribution Width 19.5 % (9.3-17.3); White Blood Count 10.1 T/CUMM (4-12)
[2018-11-27 08:12] LABS: Calcium 8.2 MG/DL (8.5-10.1); Osmolality,Calculated 273.1 MOS/KG (273-304); Potassium 3.9 MMOL/L (3.5-5.1)
[2018-11-27] MEDS ORDERED: FUROSEMIDE 40 MG TABLET PO SCH ×2 (08:30→09:00)
[2018-11-27] MEDS ORDERED: FERROUS SULFATE 325 MG TABLET PO SCH (09:00)
[2018-11-27] MEDS: DILTIAZEM CD 240 MG CAPSULE PO SCH (09:19)
[2018-11-27] MEDS: ASPIRIN EC 81 MG TABLET PO SCH (09:19)
[2018-11-27] MEDS: DICLOFENAC 1.3% PATCH 5/PACK TRANSDERM SCH (09:21)
[2018-11-27] MEDS: POTASSIUM CHLORIDE 20 MEQ TABLET PO SCH (09:21)
[2018-11-27] MEDS: PANTOPRAZOLE 40 MG TABLET PO SCH (09:21)
[2018-11-27] MEDS: METOPROLOL SUCCINATE XL 100 MG TABLET PO SCH (09:22)
[2018-11-27 11:54] VITALS: BP 144/90
== END 2018-11-27 14:45 | disposition home or self-care (01) | DRG 308 ==
LOC: N.TELEN 18:57
PROVIDERS: ADMIT Internal Medicine Clinical Cardiac Electrophysiology; ATTEND Internal Medicine Clinical Cardiac Electrophysiology